=== PATIENT | male | born 1935 | race Caucasian/White ===

== ENCOUNTER 2023-12-17 13:27 | Emergency (ER) | payer OTHER, SELFPAY ==
[2023-12-17 13:42] VITALS: BP 123/86
--- NOTE | 2023-12-17 15:38 | ED.GENMED ---
History of Present Illness
General
Chief Complaint: Musculo-Skeletal Complaint
Time Seen by Provider: 12/17/23 15:05
Travel History
Have you had any contact with someone who has COVID-19?: No
Do you have any symptoms of coronavirus? Fever > 100 degrees, chills, cough, shortness of breath, sore throat, loss of taste or smell, muscle aches, or headache?: No
History of Present Illness
History of Present Illness:
88-year-old male with history of hypertension presents the emergency department for evaluation of a fall that occurred late last evening. He is uncertain of the details but states 'I think I hit my head'. He is currently complaining primarily of
right hip and right thigh pain. He is able to walk. He does report lightheadedness and right shoulder pain as well. Denies any chest pain or shortness of breath. Does not take any aspirin or anticoagulants. Denies neck pain, low back pain, or
extremity paresthesias
Past History
Past History
ED Past Medical History: HTN and Psychiatric (Depression)
ED Past Surgical History: Cholecystectomy and Orthopedic (Left hip replacement)
Social History
Tobacco: Non-smoker
Alcohol: None
Drug: None
Personal:
Living: assisted living
Review of Systems
Review of Systems
Allergies reviewed?: Yes
All Other Systems: ROS reviewed and negative except as documented in HPI and ROS
Phy Exam
Physical Exam
Physical Exam:
GEN: Well appearing, NAD, WDWN
Eyes: PERRLA, EOMs intact, no scleral icterus
HENT: NCAT, oral mucosa moist
Lungs: CTAB, no wheezes, rales, rhonchi, normal chest wall excursion
Cardiac: RRR, no M/R/G, no peripheral edema. Radial pulses 2+ bilat
Abdomen: S, NT, ND, NABS, no masses or hepatosplenomegaly
Neuro: AO x 3, no focal deficits to BUE/BLE, normal sensation throughout
MSK: No gross deformity or ecchymosis. Right shoulder range of motion normal in all naqvi, no bony tenderness however with resisted abduction the patient reports pain to the AC joint. There is no midline cervical, thoracic, or lumbar spine
tenderness. No obvious deformities to the right leg, there is mild ecchymosis to the right medial distal quadriceps. Right hip and right knee range of motion is intact without crepitus however patient reports pain in the right proximal thigh
throughout
Skin: No rashes, petechiae. Normal color, no pallor or jaundice.
Psych: Calm, cooperative, proper hygiene
Course
Orders/Labs/Results
Orders:
Orders
12/17/23 15:37
CT Head W/o Iv Contrast Urgent
Comment:
Reason For Exam: fall, lightheaded
CR Hip - RT w/wo Pel 2-3 Vw* Urgent
Comment:
Reason For Exam: fall
Include a pelvis x-ray?: Yes
CR Knee- Right 4 Or More View* Urgent
Comment:
Reason For Exam: fall
CR Shoulder, Trauma - Right Urgent
Reason For Exam: fall
Vital Signs
Initial and Last Documented VS:
Initial Vital Signs
Temp Pulse Resp BP Pulse Ox
98.7 F 86 18 123/86 96
12/17/23 13:42 12/17/23 13:42 12/17/23 13:42 12/17/23 13:42 12/17/23 13:42
Last Documented Vital Signs
Temp Pulse Resp BP Pulse Ox
98.7 F 86 18 123/86 96
12/17/23 13:42 12/17/23 13:42 12/17/23 13:42 12/17/23 13:42 12/17/23 13:42
MDM/Problems Addressed
MDM/Problems Addressed:
88-year-old male presents with multiple injuries after a minor fall last night. Due to his advanced age and reports of head strike a CT of the head was obtained which was negative. Right shoulder, right knee, and right hip x-rays all independently
interpreted by me were negative for acute osseous abnormalities. Patient is able to ambulate. Discussed supportive care medications at home
*Critical Care Note
Total Time (30-74mins, 75-104mins- exclusive of procedures): Not Applicable
ED Attending Note
-
Portions of this chart may have been created with voice recognition software.� Occasional wrong word or��sound alike� substitutions may have occurred due to the inherent limitations of voice recognition software.
Discharge Plan
Departure
Patient Disposition: Home (Routine Discharge)
Date of Disposition: 12/17/23
Time of Disposition: 16:51
Patient with high blood pressure during this ER visit?: No
Discharge Problem:
Fall, Contusion of knee, right
Instructions: Knee Sprain (DC)
Prescriptions:
No Action
aspirin 81 MG tablet,delayed release (DR/EC)
81 mg PO DAILY
meloxicam 7.5 MG tablet
7.5 mg PO DAILYPRN PRN (Reason: pain)
doxazosin 4 MG tablet
4 mg PO HS
sertraline 50 MG tablet
50 mg PO DAILY
cholecalciferol (vitamin D3) 1,000 UNITS tablet
1,000 units PO DAILY
melatonin 5 MG tablet
5 mg PO HSPRN PRN (Reason: sleep)
multivitamin with folic acid [Tab-A-Antonio] 1 TABLET tablet
1 tab PO DAILY
furosemide 20 MG tablet
20 mg PO DAILYPRN PRN (Reason: weight > 150 lb ) Qty: 30 0RF
prednisone 10 MG tablet
10 mg PO .TAPER Qty: 160 0RF
Rx Instructions:
Take 50mg daily [id number], 40mg daily [id number],
30mg daily [id number], 20mg daily
ondansetron 4 MG tablet,disintegrating
4 mg PO TIDPRN PRN (Reason: nausea) Qty: 12 0RF
prednisone 10 MG tablet
10 mg PO DAILY Qty: 30 0RF
Rx Instructions:
Day 1 & 2: 50 mg, day 3 & 4: 40 mg, days 5 & 6: 30 mg, days 7&8: 20 mg and days 9&10: 10 mg
Referrals:
Sina Garvin MD [Family Provider] -
Interventions
Interventions:
*Risk Screen - Suicide Last Done: 12/17/23 13:44
*General Assessment Last Done: 12/17/23 13:44
*Neglect/Abuse Screening Last Done: 12/17/23 13:44
*ED COVID-19 Vaccine History Last Done: 12/17/23 13:45
*Nursing Disposition Last Done: 12/17/23 17:18
ED-Musculoskeletal Assessment Last Done: 12/17/23 16:05
ED- Neurological Assessment Last Done: 12/17/23 16:05
ED-Skin Assessment Last Done: 12/17/23 16:05
Discharge Date and Time
Discharge Date/Time: 12/17/23 17:19
== END 2023-12-17 17:19 | disposition home or self-care (01) ==
LOC: EMR 13:27
PROVIDERS: EMERGENCY PHYSICIAN Emergency Medicine; FAMILY PHYSICIAN Internal Medicine
DX: S80.01XA Contusion of right knee, initial encounter (principal); W19.XXXA Unspecified fall, initial encounter
CPT/HCPCS: 99284; 70450; 73030; 73502; 73564

== ENCOUNTER 2024-04-03 15:36 | Emergency (ER) | payer OTHER, SELFPAY ==
[2024-04-03 15:42] VITALS: BP 132/82
--- NOTE | 2024-04-03 16:23 | ED.GENMED ---
History of Present Illness
General
Chief Complaint: Eye Problems
Source: patient
Exam Limitations: none
Time Seen by Provider: 04/03/24 16:15
History of Present Illness
History of Present Illness:
88-year-old male not anticoagulated presents complaining of red blood appearing on the white part of his right eye starting this morning. He denies pain. No headache. No vision change. He thinks he may have rubbed his eye yesterday. He is not
sure if the bleeding got worse. No outward bleeding from his eye. No other complaints at this time
Past History
Past History
ED Past Medical History: HTN and Psychiatric (Depression)
ED Past Surgical History: Cholecystectomy and Orthopedic (Left hip replacement)
Social History
Tobacco: Non-smoker
Alcohol: None
Drug: None
Personal:
Living: assisted living
Phy Exam
Physical Exam
Physical Exam:
General: Well-appearing male no acute respiratory distress
HEENT: Normocephalic atraumatic right eye examined. There is a subconjunctival hemorrhage noted seems to be centered medially but spreads inferiorly under the iris and laterally. There is no hyphema. The pupil is round and reactive. Extraocular
motions are intact. Surrounding skin is without erythema lids were everted no visible foreign bodies
Neurologic: Alert good motion to the extremities conversing appropriately
Course
Vital Signs
Initial and Last Documented VS:
Initial Vital Signs
Temp Pulse Resp BP Pulse Ox
98.2 F 71 18 132/82 97
04/03/24 15:42 04/03/24 15:42 04/03/24 15:42 04/03/24 15:42 04/03/24 15:42
Last Documented Vital Signs
Temp Pulse Resp BP Pulse Ox
98.2 F 71 18 132/82 97
04/03/24 15:42 04/03/24 15:42 04/03/24 15:42 04/03/24 15:42 04/03/24 15:42
MDM/Problems Addressed
Differential Diagnosis Includes:
Patient with subconjunctival hemorrhage. No signs of foreign body or abrasion visual acuity checked. Neurologically intact no sign of CVA. At this point no indication for any further intervention
*Critical Care Note
Total Time (30-74mins, 75-104mins- exclusive of procedures): Not Applicable
Update Note
Update Note:
Visual acuity 20/20 left right and both. Reassured patient. Recommended artificial tears and cool compresses. Stable for discharge
Patient has no pain to suggest glaucoma. Vision is normal. No neurologic deficit.
ED Attending Note
-
Portions of this chart may have been created with voice recognition software.� Occasional wrong word or��sound alike� substitutions may have occurred due to the inherent limitations of voice recognition software.
Discharge Plan
Departure
Patient Disposition: Home (Routine Discharge)
Date of Disposition: 04/03/24
Time of Disposition: 16:39
Patient with high blood pressure during this ER visit?: No
Discharge Problem:
KAYLA (subconjunctival hemorrhage)
Instructions: Subconjunctival Hemorrhage
Prescriptions:
No Action
aspirin 81 MG tablet,delayed release (DR/EC)
81 mg PO DAILY
meloxicam 7.5 MG tablet
7.5 mg PO DAILYPRN PRN (Reason: pain)
doxazosin 4 MG tablet
4 mg PO HS
sertraline 50 MG tablet
50 mg PO DAILY
cholecalciferol (vitamin D3) 1,000 UNITS tablet
1,000 units PO DAILY
melatonin 5 MG tablet
5 mg PO HSPRN PRN (Reason: sleep)
multivitamin with folic acid [Tab-A-Antonio] 1 TABLET tablet
1 tab PO DAILY
furosemide 20 MG tablet
20 mg PO DAILYPRN PRN (Reason: weight > 150 lb ) Qty: 30 0RF
prednisone 10 MG tablet
10 mg PO .TAPER Qty: 160 0RF
Rx Instructions:
Take 50mg daily [id number], 40mg daily [id number],
30mg daily [id number], 20mg daily
ondansetron 4 MG tablet,disintegrating
4 mg PO TIDPRN PRN (Reason: nausea) Qty: 12 0RF
prednisone 10 MG tablet
10 mg PO DAILY Qty: 30 0RF
Rx Instructions:
Day 1 & 2: 50 mg, day 3 & 4: 40 mg, days 5 & 6: 30 mg, days 7&8: 20 mg and days 9&10: 10 mg
Referrals:
Sina Garvin MD [Family Provider] -
Activity Restrictions/Additional Instructions:
Use artificial tears as needed. You may apply cool compresses. Return if worse otherwise follow-up with your eye doctor
Interventions
Interventions:
*Risk Screen - Suicide Last Done: 04/03/24 16:27
*General Assessment Last Done: 04/03/24 16:26
*Neglect/Abuse Screening Last Done: 04/03/24 16:27
ED- Fall Risk Assessment Last Done: 04/03/24 16:28
*ED COVID-19 Vaccine History Last Done: 04/03/24 16:19
Discharge Date and Time
Print Language: FRISIAN
[2024-04-03 16:25] VITALS: BMI 31.0
== END 2024-04-03 16:48 | disposition home or self-care (01) ==
LOC: EMR 15:36
PROVIDERS: EMERGENCY PHYSICIAN Emergency Medicine; FAMILY PHYSICIAN Internal Medicine
DX: H11.31 Conjunctival hemorrhage, right eye (principal); I10 Essential (primary) hypertension; F32.A Depression, unspecified; Z96.642 Presence of left artificial hip joint; Z79.82 Long term (current) use of aspirin; Z90.49 Acquired absence of other specified parts of digestive tract
CPT/HCPCS: 99282

== ENCOUNTER → 2024-04-25 10:17 | Outpatient (REF) | payer OTHER, SELFPAY ==
[2024-04-25 12:40] LABS: ALT (SGPT) 17 U/L (0-50); AST (SGOT) 26 U/L (17-59); Albumin 3.5 g/dl (3.5-5.0); Alkaline Phosphatase 55 U/L (38-126); Blood Urea Nitrogen 25 mg/dl (9-20); Calcium 9.4 mg/dl (8.4-10.2); Carbon Dioxide 24 mmol/L (22-30); Chloride 105 mmol/L (98-107); Glucose 119 mg/dl (70-99); Magnesium 2.1 mg/dl (1.6-2.3); Potassium 4.1 mmol/L (3.5-5.1); Sodium 139 mmol/L (135-145); Total Bilirubin 0.7 mg/dl (0.2-1.3); Total Protein 6.2 g/dl (6.3-8.2); eGFR > 60.00
[2024-04-25 13:08] LABS: Hematocrit 36.8 % (39.0-52.0); Hemoglobin 12.4 g/dL (13.0-18.0); Mean Corp Hgb Conc. 33.7 g/dL (33.0-37.0); Mean Corpuscular Hgb 28.4 pg (27.0-31.0); Mean Corpuscular Volume 84.2 fL (80.0-94.0); Mean Platelet Volume 9.8 fL (7.4-10.4); Platelet Count 330 10^3/uL (130-400); Red Blood Cell Count 4.37 10^6/uL (4.70-6.10); Red Cell Dist. Width 13.1 % (11.5-14.5); White Blood Cell Count 9.5 10^3/uL (4.8-10.8)
== END ==
LOC: OLABWHC 10:17
PROVIDERS: ATTENDING PHYSICIAN Internal Medicine
DX: I50.32 Chronic diastolic (congestive) heart failure (principal); J84.10 Pulmonary fibrosis, unspecified; M16.11 Unilateral primary osteoarthritis, right hip; M19.90 Unspecified osteoarthritis, unspecified site
CPT/HCPCS: 80053; 83735; 85027

== ENCOUNTER 2024-05-19 13:50 | Emergency (ER) | payer OTHER, SELFPAY ==
[2024-05-19 13:54] VITALS: BP 119/71
--- NOTE | 2024-05-19 14:49 | ED.GENMED ---
History of Present Illness
General
Chief Complaint: Fall
Source: patient
Exam Limitations: none
Time Seen by Provider: 05/19/24 14:39
History of Present Illness
History of Present Illness:
See MDM
Past History
Past History
ED Past Medical History: HTN and Psychiatric (Depression)
ED Past Surgical History: Cholecystectomy and Orthopedic (Left hip replacement)
Social History
Tobacco: Non-smoker
Alcohol: None
Drug: None
Personal:
Living: assisted living
Phy Exam
Physical Exam
Physical Exam:
See MDM
Course
Orders/Labs/Results
Orders:
Orders
05/19/24 14:34
CBC/With Diff [Complete Blood Count/With Diff] Urgent
Comprehensive Metabolic Panel Urgent
05/19/24 15:51
Urinalysis Reflex To Culture Urgent
Date Specimen was Collected: 05/19/24
Time Specimen was Collected: 15:47
Urine Microscopic Reflex Cult Urgent
Abnormal Lab Results
05/19/24 05/19/24
14:34 15:51
RBC 4.67 L 10^6/uL
(4.70-6.10)
Hct 38.0 L %
(39.0-52.0)
Absolute Lymphs (auto) 1.0 L 10^3/uL
(1.2-3.4)
Absolute Monos (auto) 0.9 H 10^3/uL
(0.1-0.6)
Lymphocytes % 12.6 L %
(20.5-51.1)
Monocytes % 10.8 H %
(1.7-9.3)
BUN 22 H mg/dl
(9-20)
Glucose 109 H mg/dl
(70-99)
Leukocyte Esterase Rfl Trace A
(Negative)
05/19/24 14:34
05/19/24 14:34
Vital Signs
Initial and Last Documented VS:
Initial Vital Signs
Temp Pulse Resp BP Pulse Ox
97.7 F 85 16 119/71 98
05/19/24 13:54 05/19/24 13:54 05/19/24 13:54 05/19/24 13:54 05/19/24 13:54
Last Documented Vital Signs
Temp Pulse Resp BP Pulse Ox
97.7 F 85 16 119/71 98
05/19/24 13:54 05/19/24 13:54 05/19/24 13:54 05/19/24 13:54 05/19/24 13:54
MDM/Problems Addressed
Differential Diagnosis Includes:
HPI and MDM Narrative:
88-year-old male presenting for evaluation after a fall. Patient states his legs gave out this morning. However, daughter at bedside believes that he tripped over the dog pee pad. Patient landed on both of his knees. He denies head trauma. He
had a recent right hip replacement and is currently on antibiotics for infection of the incision site. On exam, he is well-appearing and nontoxic. He has mildly dry mucous membranes. I provided water to the patient. Will obtain basic blood work.
His small abrasions to both knees but has no bony tenderness. There is no pain with hip palpation or logrolling of the hip. The incision was undressed and there is mild discharge noted at the site. It currently being cared for by wound care, per
daughter
Physical exam
General: Well appearing and non-toxic
HEENT: protecting airway
Neck: appears supple
CV: No evidence of cyanosis
Resp: No accessory muscle use
Abd: Non-distended
Extremities: Right hip incision with mild discharge. Bilateral abrasions to both knees without bony tenderness. No pain with palpation of right hip or pelvis
Neuro: alert
Psych: Normal affect
Skin: Mild discharge to right hip incision
Problems Addressed including Acute and Chronic Conditions affecting care:
1. Fall
Acuity: acute
Prognosis: stable
Details: Per daughter, likely mechanical fall. Will obtain basic blood work and urinalysis. No evidence of significant trauma to suggest fracture or dislocation
Updates
Blood work without clinical significance. Urine negative. Patient ambulated without difficulty and feels comfortable going home
Differential Diagnosis (but not limited to): Abrasion, mechanical fall, UTI
Testing considered: Hip and knee x-ray
Drug therapy (if applicable): OTC meds, please see d/c instruction regarding Rx drugs
Amount and/or Complexity of Data Reviewed
Clinical info obtained from: Patient
External data reviewed: N/A
Labs I independently reviewed (but not limited to): White blood cell count normal
Radiology: N/A
Pulse Ox: not hypoxic
EKG independently reviewed: N/A
Telephone Installer: N/A
Critical Care: N/A
Risk of Complication:
Social Determinants of health: Good social support
Discussed with other providers: N/A
Escalation of Care includes Admit/Obs: After being observed in the Emergency Department, pt stable for discharge.
Occasional wrong word or 'sound a like' substitutions may have occurred due to the inherent limitations of voice recognition software. Read the chart carefully and recognize, using context, where substitutions have occurred.
*Critical Care Note
Total Time (30-74mins, 75-104mins- exclusive of procedures): Not Applicable
ED Attending Note
-
Portions of this chart may have been created with voice recognition software.� Occasional wrong word or��sound alike� substitutions may have occurred due to the inherent limitations of voice recognition software.
Discharge Plan
Departure
Patient Disposition: Home (Routine Discharge)
Date of Disposition: 05/19/24
Time of Disposition: 18:18
Patient with high blood pressure during this ER visit?: No
Discharge Problem:
Fall
Prescriptions:
No Action
aspirin 81 MG tablet,delayed release (DR/EC)
81 mg PO DAILY
meloxicam 7.5 MG tablet
7.5 mg PO DAILYPRN PRN (Reason: pain)
doxazosin 4 MG tablet
4 mg PO HS
sertraline 50 MG tablet
50 mg PO DAILY
cholecalciferol (vitamin D3) 1,000 UNITS tablet
1,000 units PO DAILY
melatonin 5 MG tablet
5 mg PO HSPRN PRN (Reason: sleep)
multivitamin with folic acid [Tab-A-Antonio] 1 TABLET tablet
1 tab PO DAILY
furosemide 20 MG tablet
20 mg PO DAILYPRN PRN (Reason: weight > 150 lb ) Qty: 30 0RF
prednisone 10 MG tablet
10 mg PO .TAPER Qty: 160 0RF
Rx Instructions:
Take 50mg daily [id number], 40mg daily [id number],
30mg daily [id number], 20mg daily
ondansetron 4 MG tablet,disintegrating
4 mg PO TIDPRN PRN (Reason: nausea) Qty: 12 0RF
prednisone 10 MG tablet
10 mg PO DAILY Qty: 30 0RF
Rx Instructions:
Day 1 & 2: 50 mg, day 3 & 4: 40 mg, days 5 & 6: 30 mg, days 7&8: 20 mg and days 9&10: 10 mg
Referrals:
Sina Garvin MD [Family Provider] -
Activity Restrictions/Additional Instructions:
Please return for any worsening symptoms.
You may return at any time if you have further concerns.
Please follow up with your doctor at the first available appointment, preferably this week.
Thank you for choosing [facility].
Interventions
Interventions:
*Risk Screen - Suicide Last Done: 05/19/24 13:54
*General Assessment Last Done: 05/19/24 13:54
*Neglect/Abuse Screening Last Done: 05/19/24 13:54
ED-Musculoskeletal Assessment Last Done: 05/19/24 16:40
ED- Neurological Assessment Last Done: 05/19/24 16:40
ED-Skin Assessment Last Done: 05/19/24 16:40
Discharge Date and Time
Print Language: YI
[2024-05-19 14:51] LABS: % Basophils 0.5 % (0-2); % Immature Granulocytes 0.4 % (0-0.5); % Lymphocytes 12.6 % (20.5-51.1); % Monocytes 10.8 % (1.7-9.3); % Neutrophils 72.7 % (42.2-75.2); Absolute Eosinophils 0.2 10^3/uL (0-0.7); Absolute Monocytes 0.9 10^3/uL (0.1-0.6); Absolute Neutrophils 5.8 10^3/uL (1.4-6.5); Hemoglobin 13.1 g/dL (13.0-18.0); Mean Corp Hgb Conc. 34.5 g/dL (33.0-37.0); Mean Corpuscular Hgb 28.1 pg (27.0-31.0); Mean Corpuscular Volume 81.4 fL (80.0-94.0); Mean Platelet Volume 9.4 fL (7.4-10.4); Nucleated Red Blood Cells % 0 % (-); Platelet Count 215 10^3/uL (130-400); Red Blood Cell Count 4.67 10^6/uL (4.70-6.10); Red Cell Dist. Width 13.4 % (11.5-14.5)
[2024-05-19 15:16] LABS: ALT (SGPT) 12 U/L (0-50); AST (SGOT) 18 U/L (17-59); Albumin 4.3 g/dl (3.5-5.0); Alkaline Phosphatase 72 U/L (38-126); Blood Urea Nitrogen 22 mg/dl (9-20); Calcium 9.8 mg/dl (8.4-10.2); Carbon Dioxide 26 mmol/L (22-30); Chloride 104 mmol/L (98-107); Glucose 109 mg/dl (70-99); Sodium 138 mmol/L (135-145); Total Bilirubin 0.7 mg/dl (0.2-1.3); Total Protein 7.1 g/dl (6.3-8.2); eGFR > 60.00
[2024-05-19 16:03] LABS: Urine Albumin Negative (Neg - Trace); Urine Bilirubin Negative (Negative); Urine Character Clear (Clear); Urine Color Yellow; Urine Glucose Negative (Negative); Urine Ketone Negative (Negative); Urine Leukocyte Trace (Negative); Urine Nitrite Negative (Negative); Urine Occult Blood Negative (Negative); Urine Urobilinogen Negative (Neg - 1+)
[2024-05-19 16:13] LABS: Urine Red Blood Cell 0-2 /HPF (0-2); Urine White Cell 0-2 /HPF (0-5)
== END 2024-05-19 18:55 | disposition home or self-care (01) ==
LOC: EMR 13:50
PROVIDERS: EMERGENCY PHYSICIAN Student in an Organized Health Care Education/Training Program; FAMILY PHYSICIAN Internal Medicine
DX: S80.212A Abrasion, left knee, initial encounter (principal); S80.211A Abrasion, right knee, initial encounter; W01.0XXA Fall on same level from slipping, tripping and stumbling without subsequent striking against object, initial encounter; I10 Essential (primary) hypertension; F32.A Depression, unspecified; Z90.49 Acquired absence of other specified parts of digestive tract; Z96.642 Presence of left artificial hip joint
CPT/HCPCS: 99283; 80053; 81003; 81015; 85025

== ENCOUNTER 2024-06-08 17:48 | Emergency (ER) | payer OTHER, SELFPAY ==
[2024-06-08] VITALS (7 sets, daily range): BP systolic 104–128; BP diastolic 65–81; BMI 28.8
[2024-06-08] MEDS: NSS 1000 IV (18:04)
[2024-06-08] MEDS: TYLENOL 1000 MG PO (18:06)
[2024-06-08 18:53] LABS: Hematocrit 39.3 % (39.0-52.0); Hemoglobin 13.6 g/dL (13.0-18.0); Mean Corp Hgb Conc. 34.6 g/dL (33.0-37.0); Mean Corpuscular Hgb 27.5 pg (27.0-31.0); Mean Corpuscular Volume 79.6 fL (80.0-94.0); Mean Platelet Volume 9.7 fL (7.4-10.4); Platelet Count 229 10^3/uL (130-400); Red Blood Cell Count 4.94 10^6/uL (4.70-6.10); Red Cell Dist. Width 13.9 % (11.5-14.5); White Blood Cell Count 25.7 10^3/uL (4.8-10.8)
[2024-06-08 18:58] LABS: Lactic Acid 2.1 mmol/L (0.7-2.0)
[2024-06-08 18:59] LABS: % Basophils 0.3 % (0-2); % Eosinophils 0.1 % (0-6); % Immature Granulocytes 1.3 % (0-0.5); % Lymphocytes 3.3 % (20.5-51.1); % Monocytes 7.4 % (1.7-9.3); % Neutrophils 87.6 % (42.2-75.2); Absolute Basophils 0.1 10^3/uL (0-0.2); Absolute Immature Granulocytes 0.3 10^3/uL (0-0.05); Absolute Lymphocytes 0.9 10^3/uL (1.2-3.4); Absolute Monocytes 1.9 10^3/uL (0.1-0.6); Absolute Neutrophils 22.5 10^3/uL (1.4-6.5); Nucleated Red Blood Cells % 0 % (-)
[2024-06-08 19:15] LABS: ALT (SGPT) 16 U/L (0-50); AST (SGOT) 31 U/L (17-59); Albumin 4.2 g/dl (3.5-5.0); Alkaline Phosphatase 67 U/L (38-126); Blood Urea Nitrogen 22 mg/dl (9-20); Calcium 9.3 mg/dl (8.4-10.2); Carbon Dioxide 20 mmol/L (22-30); Chloride 104 mmol/L (98-107); Estimated Creatinine Clearance 49 ml/min; Glucose 115 mg/dl (70-99); Potassium 3.7 mmol/L (3.5-5.1); Sodium 141 mmol/L (135-145); Total Protein 7.3 g/dl (6.3-8.2); eGFR > 60.00
[2024-06-08] MEDS: NSS 500 IV (19:40)
[2024-06-08 20:44] LABS: Urine Albumin Negative (Neg - Trace); Urine Bilirubin Negative (Negative); Urine Character Clear (Clear); Urine Color Yellow; Urine Glucose Negative (Negative); Urine Ketone 1+ (Negative); Urine Leukocyte 1+ (Negative); Urine Nitrite Negative (Negative); Urine Occult Blood 2+ (Negative); Urine Specific Gravity 1.005 (<1.030); Urine Urobilinogen 1+ (Neg - 1+)
[2024-06-08 20:57] LABS: COVID-19 Antigen Negative (Negative)
[2024-06-08 20:57] LABS: Urine Red Blood Cell 0-2 /HPF (0-2)
--- NOTE | 2024-06-08 21:03 | ED.GENMED ---
History of Present Illness
General
Chief Complaint: Change in Mental Status
Source: patient and family
Exam Limitations: none
Time Seen by Provider: 06/08/24 18:43
Nursing documentation reviewed up to this point in time: agreed with
History of Present Illness
History of Present Illness:
88-year-old male with a past medical history of hypertension who presents to the emergency department with his daughter for evaluation of weakness, fever, also had a mechanical fall today. Patient reports that he has been feeling increasingly weak
over the past few days. He had a minor ground-level fall onto his bottom few days ago, no serious injuries at that time. Today he had another ground-level fall and daughter found him on the floor this afternoon with apparent minor head trauma. He
has been mildly confused since she found him, was found to have a high fever. Brought in by EMS. He denies any headache or neck pain. Denies any chest or abdominal pain. Daughter has noted some increased frequency of urination but patient denies
any dysuria. He has not had any nausea or vomiting, or diarrhea. His only recent complaint has been some pain in the right hip and some increasing redness and drainage from his right hip where he had a hip replacement in March (with Dr. Kruse at
[place]).
Past History
Past History
ED Past Medical History: HTN and Psychiatric (Depression)
ED Past Surgical History: Cholecystectomy and Orthopedic (Left hip replacement)
Social History
Tobacco: Non-smoker
Alcohol: None
Drug: None
Personal:
Living: assisted living
Review of Systems
Review of Systems
All Other Systems: ROS reviewed and negative except as documented in HPI and ROS
Constitutional: Reports fever, fatigue and chills
EENT: Denies sore throat or runny nose
Respiratory: Denies cough or trouble breathing
Cardiac: Denies chest pain
ABD/GI: Denies abdominal pain, nausea or vomiting
: Reports frequency; Denies dysuria or flank pain
Musculoskeletal: Reports joint pain; Denies neck pain or back pain
Neurological: Denies headache
Phy Exam
Physical Exam
Physical Exam:
General: Slightly lethargic but arousable, febrile to 102 �F
Head: Normocephalic, tiny white abrasion
Eyes: Conjunctiva normal, pupils equal round reactive to light bilaterally
Throat: Airway intact, handling secretions
Neck: Trachea midline, no cervical spine tenderness
Lungs: Clear to auscultation bilaterally, no wheezing, rales, rhonchi
Heart: Tachycardia with regular rhythm, no murmurs, gallops, or rubs
Abd: Soft, non distended, nontender
Back: No signs of trauma the back flank, no tenderness in thoracic or lumbar spine
Neuro: Lethargic but arousable, no gross deficits
Skin: Erythema and warmth, wound on the right lateral hip as below
Extremities: Patient has erythema, induration and tenderness along the lateral right hip near prior surgical incision; he has a small approximately 1 cm diameter incisional wound with purulent drainage; extremities otherwise are atraumatic and he
allows for passive range of motion without significant pain
Scores
Heart Failure Risk
Heart Failure Risk Score: Not Applicable
Heart Score for Chest Pain Patients
STEMI patient?: Not applicable
Withdrawal Assessment of Alcohol
Withdrawal Assessment Completed?: Not applicable
Course
Orders/Labs/Results
Orders:
Orders
06/08/24 18:02
EKG [Electrocardiogram (*1)] Urgent
Reason for Study: Tachycardia
06/08/24 18:03
EKG- Treatment ONCE
Complete Blood Count/With Diff Urgent
Comprehensive Metabolic Panel Urgent
Lactic Acid Urgent
Blood Culture Urgent
LOREN Source: Blood/Venous
Specimen Description:
0.9% Sodium Chloride 1000 ml [Nss] 1,000 ml IV BOLUS
Acetaminophen [Tylenol] 1,000 mg .ROUTE .[facility]
06/08/24 18:06
Acetaminophen [Tylenol] 1,000 mg PO NOW STA
06/08/24 19:16
CT Cervical Spine W/o Iv Contr Urgent
Comment:
Reason For Exam: fall with head strike, confused
CT Head W/o Iv Contrast Urgent
Comment:
Reason For Exam: fall with head strike, confused
CT Pelvis With Iv Contrast Urgent
Comment:
Reason For Exam: left hip redness, swelling, wound s/p joint replac
CR Chest - 2 Views Urgent
Comment:
Reason For Exam: fever
06/08/24 19:17
0.9% Sodium Chloride 500 ml [Nss] 500 ml IV BOLUS
06/08/24 20:26
COVID-19 Antigen Urgent
Source: Nasal Swab
06/08/24 20:35
Urinalysis Reflex To Culture Urgent
Date Specimen was Collected: 06/08/24
Time Specimen was Collected: 20:34
Urine Microscopic Reflex Cult Urgent
Urine Culture Urgent
LOREN Source: U
Specimen Description:
Date Specimen was Collected: 06/08/24
Time Specimen was Collected: 20:34
06/08/24 20:58
Piperacillin/Tazo 3.375 Gram [Zosyn] 3.375 gram in 50 ml IV NOW
Vancomycin [Vancocin] 1,500 mg 0.9% Sodium Chloride [Nss] 20 ml 0.9% Sodium Chloride 250 ml [Nss] 250 ml IV NOW
Abnormal Lab Results
06/08/24 06/08/24
18:03 20:35
WBC 25.7 H 10^3/uL
(4.8-10.8)
MCV 79.6 L fL
(80.0-94.0)
Abs Immat Gran (auto) 0.3 H 10^3/uL
(0-0.05)
Absolute Neuts (auto) 22.5 H 10^3/uL
(1.4-6.5)
Absolute Lymphs (auto) 0.9 L 10^3/uL
(1.2-3.4)
Absolute Monos (auto) 1.9 H 10^3/uL
(0.1-0.6)
Immature Gran % 1.3 H %
(0-0.5)
Neutrophils % 87.6 H %
(42.2-75.2)
Lymphocytes % 3.3 L %
(20.5-51.1)
Carbon Dioxide 20 L mmol/L
(22-30)
BUN 22 H mg/dl
(9-20)
Glucose 115 H mg/dl
(70-99)
Lactic Acid 2.1 H mmol/L
(0.7-2.0)
Total Bilirubin 2.0 H mg/dl
(0.2-1.3)
Urine Ketones 1+ A
(Negative)
Ur Occult Blood Reflex 2+ A
(Negative)
Leukocyte Esterase Rfl 1+ A
(Negative)
06/08/24 18:03
06/08/24 18:03
Vital Signs
Initial and Last Documented VS:
Initial Vital Signs
Pulse Resp
126 16
06/08/24 17:56 06/08/24 17:56
Last Documented Vital Signs
Temp Pulse Resp BP Pulse Ox
39.2 C H 109 21 120/68 93
06/08/24 18:07 06/08/24 20:31 06/08/24 20:31 06/08/24 20:31 06/08/24 20:31
MDM/Problems Addressed
Differential Diagnosis Includes:
Sepsis�source includes UTI, pneumonia, wound infection, virus
MDM/Problems Addressed:
88-year-old male presents to the emergency room for evaluation of weakness and fever, confusion�had 2 falls in the past few days most notably today where he was found facedown on the ground. Aside from fever only other complaint has been fatigue
and redness, drainage from the near surgical incision on his right hip. He arrives to us febrile and tachycardic; normotensive, normal respiratory rate, normal work of breathing normal pulse ox. Physical exam as above. Place large-bore IV send
labs including a CBC and a CMP, lactate, blood cultures. Will check for COVID. Send urinalysis. Obtain a chest x-ray. Given the fall will check CT head and cervical spine. Will check a CT of the pelvis with rule out fracture with his fall but
also to evaluate for abscess in the right hip. Check an EKG. Provide fluids and antipyretic. Reassess after the above.
Initial labs reviewed: CBC shows leukocytosis to 25.7, CMP no clinically significant abnormalities. Lactate marginally elevated at 2.1. Fluids in progress. Urinalysis negative for infection. Chest x-ray reviewed independently by me shows no
pneumonia. COVID swab is negative. CT head and cervical spine negative for any acute pathology. CT of the pelvis shows abscess right hip with surrounding cellulitis. Will cover with antibiotics�vancomycin and Zosyn. Given proximity to recent hip
replacement Case was discussed with orthopedic surgeon at [facility]�recommended ER to ER transfer and they will evaluate there. Case discussed with ER physician, accepted for transfer. Will monitor pending transport. Fortunately on
clinical reassessment after defervescence patient's mental status greatly improved he is now awake and alert.
*Radiology
Radiology exam reviewed: preliminary read by ED provider and radiology read reviewed
*Pulse Oximetry
Patient hypoxic: no
*EKG
Interpreted by ED Provider?: Yes
Heart Rate: 118
Rate: tachycardiac
Rhythm: sinus
[place]: left axis deviation
Interval: normal interval
QRS Pattern: normal QRS
Ischemia: no ischemia
*Critical Care Note
Total Time (30-74mins, 75-104mins- exclusive of procedures): 31
comment:
Critical care statement: A total of 31 minutes of critical care time was provided for this patient. This includes management of unstable vital signs, evaluation of the patient at bedside, frequent reassessment, discussion with
consultants/hospitalist, and review of pertinent medical records. This time was separate from time utilized to perform any aforementioned documented procedures
Data Reviewed
Review of Other/Old Records Reveals: Labs and Records
Source: patient, family and ambulance crew
Patient Management
Discussion with other providers: [place] Operator (Discussed with orthopedist at [place], discussed with ER physician Vane)
Escalation/DeEscalation of care consider admission/obs:
Admission indicated�transfer to [place] for continuity of care with orthopedic surgeon
ED Attending Note
-
Portions of this chart may have been created with voice recognition software.� Occasional wrong word or��sound alike� substitutions may have occurred due to the inherent limitations of voice recognition software.
Discharge Plan
Departure
Patient Disposition: Acute Care Hospital
Date of Disposition: 06/08/24
Time of Disposition: 21:25
Discharge Problem:
Sepsis, Abscess of hip, right, Cellulitis of right hip
Prescriptions:
No Action
aspirin 81 MG tablet,delayed release (DR/EC)
81 mg PO DAILY
meloxicam 7.5 MG tablet
7.5 mg PO DAILYPRN PRN (Reason: pain)
doxazosin 4 MG tablet
4 mg PO HS
sertraline 50 MG tablet
50 mg PO DAILY
cholecalciferol (vitamin D3) 1,000 UNITS tablet
1,000 units PO DAILY
melatonin 5 MG tablet
5 mg PO HSPRN PRN (Reason: sleep)
multivitamin with folic acid [Tab-A-Antonio] 1 TABLET tablet
1 tab PO DAILY
furosemide 20 MG tablet
20 mg PO DAILYPRN PRN (Reason: weight > 150 lb ) Qty: 30 0RF
prednisone 10 MG tablet
10 mg PO .TAPER Qty: 160 0RF
Rx Instructions:
Take 50mg daily [id number], 40mg daily [id number],
30mg daily [id number], 20mg daily
ondansetron 4 MG tablet,disintegrating
4 mg PO TIDPRN PRN (Reason: nausea) Qty: 12 0RF
prednisone 10 MG tablet
10 mg PO DAILY Qty: 30 0RF
Rx Instructions:
Day 1 & 2: 50 mg, day 3 & 4: 40 mg, days 5 & 6: 30 mg, days 7&8: 20 mg and days 9&10: 10 mg
Referrals:
Sina Garvin MD [Family Provider] -
Hospital Transfer
Other hospital: [place]
I certify that the patient requires transfer: Yes
Discussed case with accepting physician: Dr. Justice
Reason for transfer: specialties available
Interventions
Interventions:
*Risk Screen - Suicide Last Done: 06/08/24 18:00
*General Assessment Last Done: 06/08/24 18:00
*Neglect/Abuse Screening Last Done: 06/08/24 18:00
ED- Fall Risk Assessment Last Done: 06/08/24 18:05
*ED COVID-19 Vaccine History Last Done: 06/08/24 17:59
ED- Neurological Assessment Last Done: 06/08/24 18:08
ED Swallowing Screen Last Done: 06/08/24 18:05
Discharge Date and Time
Print Language: CITIZEN OF [place]
[2024-06-08] MEDS: ZOSYN 50 IV (21:44)
[2024-06-08] MEDS: VANCOCIN 300 MG IV (22:43)
[2024-06-08] MEDS: VANCOCIN 300 ML IV (22:43)
== END 2024-06-08 23:31 | disposition short-term general hospital (02) ==
LOC: EMR 17:48
PROVIDERS: EMERGENCY PHYSICIAN Emergency Medicine; FAMILY PHYSICIAN Internal Medicine
DX: A41.9 Sepsis, unspecified organism (principal); L02.415 Cutaneous abscess of right lower limb; L03.115 Cellulitis of right lower limb
CPT/HCPCS: 99291; 96365; 96367; 96361 ×2; 70450; 71046; 72125; 72193; 80053; 81003; 81015; 83605; 85025; 87040; 87086; 87811; 93005; Q9967

== ENCOUNTER → 2024-06-21 10:52 | Outpatient (REF) | payer OTHER, SELFPAY ==
[2024-06-21 11:26] LABS: % Basophils 1.1 % (0-2); % Lymphocytes 11.6 % (20.5-51.1); % Monocytes 7.7 % (1.7-9.3); % Neutrophils 72.6 % (42.2-75.2); Absolute Basophils 0.1 10^3/uL (0-0.2); Absolute Eosinophils 0.3 10^3/uL (0-0.7); Absolute Immature Granulocytes 0.4 10^3/uL (0-0.05); Absolute Lymphocytes 1.3 10^3/uL (1.2-3.4); Absolute Monocytes 0.9 10^3/uL (0.1-0.6); Hematocrit 28.4 % (39.0-52.0); Hemoglobin 9.3 g/dL (13.0-18.0); Mean Corp Hgb Conc. 32.7 g/dL (33.0-37.0); Mean Corpuscular Hgb 26.3 pg (27.0-31.0); Mean Corpuscular Volume 80.5 fL (80.0-94.0); Mean Platelet Volume 9.9 fL (7.4-10.4); Nucleated Red Blood Cells % 0 % (-); Platelet Count 366 10^3/uL (130-400); Red Blood Cell Count 3.53 10^6/uL (4.70-6.10); Red Cell Dist. Width 14.3 % (11.5-14.5); White Blood Cell Count 11.1 10^3/uL (4.8-10.8)
[2024-06-21 11:30] LABS: ALT (SGPT) 13 U/L (0-50); AST (SGOT) 20 U/L (17-59); Albumin 3.1 g/dl (3.5-5.0); Alkaline Phosphatase 65 U/L (38-126); Blood Urea Nitrogen 22 mg/dl (9-20); Calcium 8.9 mg/dl (8.4-10.2); Carbon Dioxide 23 mmol/L (22-30); Chloride 107 mmol/L (98-107); Glucose 88 mg/dl (70-99); Potassium 4.7 mmol/L (3.5-5.1); Sodium 142 mmol/L (135-145); Total Bilirubin 0.4 mg/dl (0.2-1.3); eGFR > 60.00
== END ==
LOC: OLABWHC 10:52
PROVIDERS: ATTENDING PHYSICIAN Family Medicine
DX: Z47.1 Aftercare following joint replacement surgery (principal); Z96.641 Presence of right artificial hip joint
CPT/HCPCS: 36415; 80053; 85025; 86140

== ENCOUNTER → 2024-06-27 12:16 | Outpatient (REF) | payer OTHER, SELFPAY ==
[2024-06-27 12:51] LABS: % Basophils 1.3 % (0-2); % Eosinophils 5.2 % (0-6); % Immature Granulocytes 0.7 % (0-0.5); % Lymphocytes 16.2 % (20.5-51.1); % Monocytes 9.5 % (1.7-9.3); % Neutrophils 67.1 % (42.2-75.2); Absolute Basophils 0.1 10^3/uL (0-0.2); Absolute Eosinophils 0.3 10^3/uL (0-0.7); Absolute Monocytes 0.6 10^3/uL (0.1-0.6); Hematocrit 26.9 % (39.0-52.0); Hemoglobin 8.9 g/dL (13.0-18.0); Mean Corp Hgb Conc. 33.1 g/dL (33.0-37.0); Mean Corpuscular Volume 78.7 fL (80.0-94.0); Mean Platelet Volume 9.9 fL (7.4-10.4); Nucleated Red Blood Cells % 0 % (-); Platelet Count 278 10^3/uL (130-400); Red Blood Cell Count 3.42 10^6/uL (4.70-6.10); Red Cell Dist. Width 14.2 % (11.5-14.5)
[2024-06-27 13:22] LABS: ALT (SGPT) 17 U/L (0-50); AST (SGOT) 20 U/L (17-59); Albumin 3.2 g/dl (3.5-5.0); Alkaline Phosphatase 66 U/L (38-126); Blood Urea Nitrogen 16 mg/dl (9-20); Calcium 8.8 mg/dl (8.4-10.2); Carbon Dioxide 23 mmol/L (22-30); Chloride 107 mmol/L (98-107); Glucose 94 mg/dl (70-99); Potassium 4.3 mmol/L (3.5-5.1); Sodium 141 mmol/L (135-145); Total Bilirubin 0.4 mg/dl (0.2-1.3); Total Protein 5.9 g/dl (6.3-8.2); eGFR > 60.00
== END ==
LOC: OLABWHC 12:16
PROVIDERS: ATTENDING PHYSICIAN Family Medicine
DX: Z47.1 Aftercare following joint replacement surgery (principal); Z96.641 Presence of right artificial hip joint
CPT/HCPCS: 36415; 80053; 85025; 86140

== ENCOUNTER → 2024-07-04 11:47 | Outpatient (REF) | payer OTHER, SELFPAY ==
[2024-07-04 12:25] LABS: % Basophils 0.6 % (0-2); % Eosinophils 6.9 % (0-6); % Immature Granulocytes 0.5 % (0-0.5); % Lymphocytes 18.6 % (20.5-51.1); % Monocytes 9.5 % (1.7-9.3); % Neutrophils 63.9 % (42.2-75.2); Absolute Eosinophils 0.4 10^3/uL (0-0.7); Absolute Lymphocytes 1.2 10^3/uL (1.2-3.4); Absolute Monocytes 0.6 10^3/uL (0.1-0.6); Hemoglobin 9.5 g/dL (13.0-18.0); Mean Corp Hgb Conc. 32.8 g/dL (33.0-37.0); Mean Corpuscular Volume 79.2 fL (80.0-94.0); Mean Platelet Volume 10.1 fL (7.4-10.4); Nucleated Red Blood Cells % 0 % (-); Platelet Count 209 10^3/uL (130-400); Red Blood Cell Count 3.66 10^6/uL (4.70-6.10); Red Cell Dist. Width 14.3 % (11.5-14.5); White Blood Cell Count 6.2 10^3/uL (4.8-10.8)
[2024-07-04 12:51] LABS: ALT (SGPT) 15 U/L (0-50); AST (SGOT) 18 U/L (17-59); Albumin 3.3 g/dl (3.5-5.0); Alkaline Phosphatase 71 U/L (38-126); Blood Urea Nitrogen 13 mg/dl (9-20); Calcium 8.9 mg/dl (8.4-10.2); Carbon Dioxide 24 mmol/L (22-30); Chloride 106 mmol/L (98-107); Glucose 92 mg/dl (70-99); Potassium 4.3 mmol/L (3.5-5.1); Sodium 141 mmol/L (135-145); Total Bilirubin 0.4 mg/dl (0.2-1.3); Total Protein 6.1 g/dl (6.3-8.2); eGFR > 60.00
== END ==
LOC: OLABWHC 11:47
PROVIDERS: ATTENDING PHYSICIAN Family Medicine
DX: Z47.1 Aftercare following joint replacement surgery (principal); Z96.641 Presence of right artificial hip joint; J18.9 Pneumonia, unspecified organism
CPT/HCPCS: 36415; 80053; 85025; 86140

== ENCOUNTER → 2024-07-11 15:28 | Outpatient (REF) | payer OTHER, SELFPAY ==
[2024-07-11 16:54] LABS: % Basophils 0.6 % (0-2); % Eosinophils 5.2 % (0-6); % Immature Granulocytes 0.4 % (0-0.5); % Monocytes 12.4 % (1.7-9.3); % Neutrophils 63.4 % (42.2-75.2); Absolute Eosinophils 0.3 10^3/uL (0-0.7); Absolute Lymphocytes 0.9 10^3/uL (1.2-3.4); Absolute Monocytes 0.6 10^3/uL (0.1-0.6); Absolute Neutrophils 3.3 10^3/uL (1.4-6.5); Hematocrit 29.9 % (39.0-52.0); Hemoglobin 9.9 g/dL (13.0-18.0); Mean Corp Hgb Conc. 33.1 g/dL (33.0-37.0); Mean Corpuscular Volume 81.7 fL (80.0-94.0); Mean Platelet Volume 10.2 fL (7.4-10.4); Nucleated Red Blood Cells % 0 % (-); Platelet Count 167 10^3/uL (130-400); Red Blood Cell Count 3.66 10^6/uL (4.70-6.10); Red Cell Dist. Width 14.4 % (11.5-14.5); White Blood Cell Count 5.2 10^3/uL (4.8-10.8)
[2024-07-11 17:31] LABS: ALT (SGPT) 12 U/L (0-50); AST (SGOT) 15 U/L (17-59); Albumin 3.2 g/dl (3.5-5.0); Alkaline Phosphatase 57 U/L (38-126); Blood Urea Nitrogen 17 mg/dl (9-20); Calcium 8.7 mg/dl (8.4-10.2); Carbon Dioxide 24 mmol/L (22-30); Chloride 108 mmol/L (98-107); Glucose 91 mg/dl (70-99); Potassium 4.1 mmol/L (3.5-5.1); Sodium 142 mmol/L (135-145); Total Bilirubin 0.3 mg/dl (0.2-1.3); eGFR > 60.00
== END ==
LOC: OLABWHC 15:28
PROVIDERS: ATTENDING PHYSICIAN Family Medicine
DX: Z47.1 Aftercare following joint replacement surgery (principal); Z96.641 Presence of right artificial hip joint
CPT/HCPCS: 36415; 80053; 85025; 86140

== ENCOUNTER → 2024-07-18 11:30 | Outpatient (REF) | payer OTHER, SELFPAY ==
[2024-07-18 11:59] LABS: % Basophils 0.7 % (0-2); % Eosinophils 2.1 % (0-6); % Immature Granulocytes 0.7 % (0-0.5); % Lymphocytes 15.9 % (20.5-51.1); % Monocytes 11.1 % (1.7-9.3); % Neutrophils 69.5 % (42.2-75.2); Absolute Eosinophils 0.1 10^3/uL (0-0.7); Absolute Lymphocytes 0.9 10^3/uL (1.2-3.4); Absolute Monocytes 0.6 10^3/uL (0.1-0.6); Hematocrit 31.9 % (39.0-52.0); Hemoglobin 10.6 g/dL (13.0-18.0); Mean Corp Hgb Conc. 33.2 g/dL (33.0-37.0); Mean Corpuscular Hgb 26.5 pg (27.0-31.0); Mean Corpuscular Volume 79.8 fL (80.0-94.0); Mean Platelet Volume 10.3 fL (7.4-10.4); Nucleated Red Blood Cells % 0 % (-); Platelet Count 197 10^3/uL (130-400); Red Cell Dist. Width 14.4 % (11.5-14.5); White Blood Cell Count 5.8 10^3/uL (4.8-10.8)
[2024-07-18 12:13] LABS: ALT (SGPT) 12 U/L (0-50); AST (SGOT) 18 U/L (17-59); Albumin 3.5 g/dl (3.5-5.0); Alkaline Phosphatase 53 U/L (38-126); Blood Urea Nitrogen 19 mg/dl (9-20); Calcium 8.9 mg/dl (8.4-10.2); Carbon Dioxide 22 mmol/L (22-30); Chloride 107 mmol/L (98-107); Glucose 86 mg/dl (70-99); Potassium 4.3 mmol/L (3.5-5.1); Sodium 142 mmol/L (135-145); Total Bilirubin 0.4 mg/dl (0.2-1.3); Total Protein 6.4 g/dl (6.3-8.2); eGFR > 60.00
== END ==
LOC: OLABWHC 11:30
PROVIDERS: ATTENDING PHYSICIAN Family Medicine
DX: Z47.1 Aftercare following joint replacement surgery (principal); Z96.641 Presence of right artificial hip joint
CPT/HCPCS: 36415; 80053; 85025; 86140

== ENCOUNTER → 2024-07-25 09:43 | Outpatient (REF) | payer OTHER, SELFPAY ==
[2024-07-25 11:12] LABS: % Basophils 0.5 % (0-2); % Eosinophils 3.3 % (0-6); % Immature Granulocytes 0.3 % (0-0.5); % Lymphocytes 16.8 % (20.5-51.1); % Monocytes 10.2 % (1.7-9.3); % Neutrophils 68.9 % (42.2-75.2); Absolute Eosinophils 0.2 10^3/uL (0-0.7); Absolute Monocytes 0.6 10^3/uL (0.1-0.6); Hematocrit 31.2 % (39.0-52.0); Hemoglobin 10.4 g/dL (13.0-18.0); Mean Corp Hgb Conc. 33.3 g/dL (33.0-37.0); Mean Corpuscular Hgb 26.1 pg (27.0-31.0); Mean Corpuscular Volume 78.4 fL (80.0-94.0); Nucleated Red Blood Cells % 0 % (-); Platelet Count 216 10^3/uL (130-400); Red Blood Cell Count 3.98 10^6/uL (4.70-6.10); Red Cell Dist. Width 14.2 % (11.5-14.5); White Blood Cell Count 5.8 10^3/uL (4.8-10.8)
[2024-07-25 11:30] LABS: ALT (SGPT) 13 U/L (0-50); AST (SGOT) 19 U/L (17-59); Albumin 3.2 g/dl (3.5-5.0); Alkaline Phosphatase 47 U/L (38-126); Blood Urea Nitrogen 18 mg/dl (9-20); Calcium 8.8 mg/dl (8.4-10.2); Carbon Dioxide 22 mmol/L (22-30); Chloride 110 mmol/L (98-107); Glucose 89 mg/dl (70-99); Potassium 3.9 mmol/L (3.5-5.1); Sodium 142 mmol/L (135-145); Total Bilirubin 0.2 mg/dl (0.2-1.3); Total Protein 5.9 g/dl (6.3-8.2); eGFR > 60.00
== END ==
LOC: OLABWHC 09:43
PROVIDERS: ATTENDING PHYSICIAN Family Medicine
DX: Z47.1 Aftercare following joint replacement surgery (principal); Z96.641 Presence of right artificial hip joint
CPT/HCPCS: 36415; 80053; 85025; 86140

== ENCOUNTER 2024-08-02 20:03 | Emergency (ER) | payer OTHER, SELFPAY ==
[2024-08-02 20:15] VITALS: BP 157/97
[2024-08-02 20:47] LABS: % Basophils 0.9 % (0-2); % Eosinophils 3.2 % (0-6); % Immature Granulocytes 0.6 % (0-0.5); % Lymphocytes 17.4 % (20.5-51.1); % Monocytes 10.3 % (1.7-9.3); % Neutrophils 67.6 % (42.2-75.2); Absolute Basophils 0.1 10^3/uL (0-0.2); Absolute Eosinophils 0.2 10^3/uL (0-0.7); Absolute Lymphocytes 1.2 10^3/uL (1.2-3.4); Absolute Monocytes 0.7 10^3/uL (0.1-0.6); Absolute Neutrophils 4.7 10^3/uL (1.4-6.5); Hematocrit 35.7 % (39.0-52.0); Hemoglobin 11.6 g/dL (13.0-18.0); Mean Corp Hgb Conc. 32.5 g/dL (33.0-37.0); Mean Corpuscular Hgb 26.1 pg (27.0-31.0); Mean Corpuscular Volume 80.2 fL (80.0-94.0); Mean Platelet Volume 9.4 fL (7.4-10.4); Nucleated Red Blood Cells % 0 % (-); Platelet Count 225 10^3/uL (130-400); Red Blood Cell Count 4.45 10^6/uL (4.70-6.10); Red Cell Dist. Width 14.5 % (11.5-14.5); White Blood Cell Count 6.9 10^3/uL (4.8-10.8)
[2024-08-02 21:18] LABS: ALT (SGPT) 12 U/L (0-50); AST (SGOT) 16 U/L (17-59); Alkaline Phosphatase 54 U/L (38-126); Blood Urea Nitrogen 21 mg/dl (9-20); Calcium 9.3 mg/dl (8.4-10.2); Carbon Dioxide 24 mmol/L (22-30); Chloride 106 mmol/L (98-107); Glucose 142 mg/dl (70-99); Potassium 4.2 mmol/L (3.5-5.1); Sodium 141 mmol/L (135-145); Total Bilirubin 0.3 mg/dl (0.2-1.3); eGFR > 60.00
[2024-08-02 22:30] VITALS: BP 134/86
[2024-08-02 22:31] VITALS: BMI 30.1
--- NOTE | 2024-08-02 22:39 | ED.GENMED ---
History of Present Illness
<GILBERT Small - Last Filed: 08/03/24 01:04>
General
Chief Complaint: Weakness
Source: patient and family
Exam Limitations: none
Time Seen by Provider: 08/02/24 22:27
Nursing documentation reviewed up to this point in time: agreed with
History of Present Illness
History of Present Illness:
Patient w/ PMH of R THR & L foot drag presents to the ED after a fall. Pt is being evaluated for L foot drop by neuro and recently finished rehab for gait. Pt's daughter states he was doing well w/ his gait until today. Noticed issue w/ walking
immediately before fall. Pt states he has been weak but did not realize how weak he was until fall today. He states he is feeling fine. Denies PINEDA, dizziness, abd pain, and N/V/D/C. He does not remember how he fell. Denies pain in either leg.
Past History
<GILBERT Small - Last Filed: 08/03/24 01:04>
Past History
ED Past Medical History: HTN and Psychiatric (Depression)
ED Past Surgical History: Cholecystectomy and Orthopedic (Left hip replacement)
Social History
Tobacco: Non-smoker
Alcohol: None
Drug: None
Personal:
Living: assisted living
Review of Systems
<GILBERT Small - Last Filed: 08/03/24 01:04>
Review of Systems
Other source history: family
Constitutional: Denies fever, fatigue or chills
EENT: Denies sore throat or runny nose
Respiratory: Denies cough or trouble breathing
Cardiac: Denies chest pain or palpitations
ABD/GI: Denies abdominal pain, nausea, vomiting, diarrhea or constipated
Musculoskeletal: Denies joint pain, joint swelling, muscle pain or muscle stiffness
Neurological: Reports weakness; Denies dizzy, headache or numbness
Phy Exam
<Jessica Taylor [facility] - Last Filed: 08/03/24 01:04>
General Physical Exam
General Presentation: well appearing
General age: appears stated age
General Skin: warm and dry
General Habitus: elderly
Eye Exam
Eye Exam: PERRL
Cardiovascular Exam
Cardiovascular Exam: regular rate/rhythm, no edema, no gallop and no murmur
Pulmonary Exam
Pulmonary Exam: lungs clear, no respiratory distress, no rales, no crackles, no rhonchi and no wheezing
Gastrointestinal Exam
Gastrointestinal Exam: normal bowel sounds, non tender, soft and non distended
Neurological Exam
Neurological Exam: alert, oriented x3 and speech normal
Musculoskeletal Exam
Musculoskeletal Exam: full ROM, edema (3+ BL LE pitting edema ) and other (no tenderness to palpation of BL knees. Full BL knee ROM w/o pain. No visible bruising or swelling. )
Course
<Jessica Taylor [facility] - Last Filed: 08/03/24 01:04>
Orders/Labs/Results
Orders:
Orders
08/02/24 20:19
Knee, Right 4 or More Views [CR Knee- Right 4 Or More View*] Urgent
Comment:
Reason For Exam: fall
08/02/24 20:21
Electrocardiogram (*1) Urgent
Reason for Study: Fatigue / Weakness
EKG- Treatment ONCE
08/02/24 20:36
Complete Blood Count/With Diff Urgent
Comprehensive Metabolic Panel Urgent
08/02/24 23:25
0.9% Sodium Chloride 500 ml [Nss] 500 ml IV BOLUS
Abnormal Lab Results
08/02/24
20:36
RBC 4.45 L 10^6/uL
(4.70-6.10)
Hgb 11.6 L g/dL
(13.0-18.0)
Hct 35.7 L %
(39.0-52.0)
MCH 26.1 L pg
(27.0-31.0)
MCHC 32.5 L g/dL
(33.0-37.0)
Absolute Monos (auto) 0.7 H 10^3/uL
(0.1-0.6)
Immature Gran % 0.6 H %
(0-0.5)
Lymphocytes % 17.4 L %
(20.5-51.1)
Monocytes % 10.3 H %
(1.7-9.3)
BUN 21 H mg/dl
(9-20)
Glucose 142 H mg/dl
(70-99)
AST 16 L U/L
(17-59)
08/02/24 20:36
08/02/24 20:36
Vital Signs
Initial and Last Documented VS:
Initial Vital Signs
Temp Pulse Resp BP Pulse Ox
98.7 F 82 18 157/97 96
08/02/24 20:15 08/02/24 20:15 08/02/24 20:15 08/02/24 20:15 08/02/24 20:15
Last Documented Vital Signs
Temp Pulse Resp BP Pulse Ox
98.7 F 82 18 134/86 98
08/02/24 20:15 08/02/24 20:15 08/02/24 20:15 08/02/24 22:30 08/02/24 22:32
<Taiwo Allen DO - Last Filed: 08/02/24 23:40>
Orders/Labs/Results
Orders:
Orders
08/02/24 20:19
Knee, Right 4 or More Views [CR Knee- Right 4 Or More View*] Urgent
Comment:
Reason For Exam: fall
08/02/24 20:21
Electrocardiogram (*1) Urgent
Reason for Study: Fatigue / Weakness
EKG- Treatment ONCE
08/02/24 20:36
Complete Blood Count/With Diff Urgent
Comprehensive Metabolic Panel Urgent
08/02/24 23:25
0.9% Sodium Chloride 500 ml [Nss] 500 ml IV BOLUS
Abnormal Lab Results
08/02/24
20:36
RBC 4.45 L 10^6/uL
(4.70-6.10)
Hgb 11.6 L g/dL
(13.0-18.0)
Hct 35.7 L %
(39.0-52.0)
MCH 26.1 L pg
(27.0-31.0)
MCHC 32.5 L g/dL
(33.0-37.0)
Absolute Monos (auto) 0.7 H 10^3/uL
(0.1-0.6)
Immature Gran % 0.6 H %
(0-0.5)
Lymphocytes % 17.4 L %
(20.5-51.1)
Monocytes % 10.3 H %
(1.7-9.3)
BUN 21 H mg/dl
(9-20)
Glucose 142 H mg/dl
(70-99)
AST 16 L U/L
(17-59)
08/02/24 20:36
08/02/24 20:36
Vital Signs
Initial and Last Documented VS:
Initial Vital Signs
Temp Pulse Resp BP Pulse Ox
98.7 F 82 18 157/97 96
08/02/24 20:15 08/02/24 20:15 08/02/24 20:15 08/02/24 20:15 08/02/24 20:15
Last Documented Vital Signs
Temp Pulse Resp BP Pulse Ox
98.7 F 82 18 134/86 98
08/02/24 20:15 08/02/24 20:15 08/02/24 20:15 08/02/24 22:30 08/02/24 22:32
<Taiwo Allen DO - Last Filed: 08/02/24 23:40>
MDM/Problems Addressed
Differential Diagnosis Includes:
Weakness, electrolyte abnormality, dehydration
Chronic conditions affecting care: HTN and Other (Post rehabilitation)
<GILBERT Small - Last Filed: 08/03/24 01:04>
*Critical Care Note
Total Time (30-74mins, 75-104mins- exclusive of procedures): Not Applicable
ED Attending Note
<GILBERT Small - Last Filed: 08/03/24 01:04>
-
Portions of this chart may have been created with voice recognition software.� Occasional wrong word or��sound alike� substitutions may have occurred due to the inherent limitations of voice recognition software.
<DO Dolores Abbott Last Filed: 08/02/24 23:40>
ED Attending Note
Patient seen and examined by attending physician: Yes
I performed the substantive portion of visit, reviewed & personally made and approve the management plan that is documented in note by myself or HERMES.: Yes
ED Attending Note:
This is a pleasant 89-year-old male that presents with increased weakness. Patient had infected hip replacement prostatic and a 2-month rehab assignment at [facility]. Patient according to daughter was doing well last Thursday when the
assignment ended. She noted that he has been progressively weakening. He did have a fall today. Patient moved from independent living to assisted living. Patient has no complaints. Denies chest pain or shortness of breath. He did fall on his
knee. Patient has been able to ambulate. Patient has no other complaints at this time. He does admit to drinking iced tea throughout the day but could drink more. Patient was seen in conjunction with the PA student. I have reviewed and agree
with the history and treatment plan presented. On my independent physical exam, patient is awake, alert, and oriented x3. Heart is regular rate and rhythm. Lungs are clear to auscultation bilaterally. Abdomen soft and nontender. Moves all 4
extremities. Skin is warm and dry.
Discharge Plan
Departure
Patient Disposition: Home (Routine Discharge)
Date of Disposition: 08/03/24
Time of Disposition: 00:41
Patient with high blood pressure during this ER visit?: Yes
Condition: Good
Discharge Problem:
Weakness, Acute dehydration
Instructions: Generalized Weakness (DC), BLOOD PRESSURE
Prescriptions:
No Action
aspirin 81 MG tablet,delayed release (DR/EC)
81 mg PO DAILY
multivitamin with folic acid [Tab-A-Antonio] 1 TABLET tablet
1 tab PO DAILY
vitamin E 670 mg (1,000 unit) Capsule
670 mg PO DAILY
meloxicam 15 mg Tablet
15 mg PO DAILY
clonazepam 0.5 mg Tablet
0.5 mg PO HS
Patient Comments:
06/08/24: last filled 05/06/24 for 30 tablets over 30 days
sertraline 100 mg Tablet
100 mg PO DAILY
ascorbic acid (vitamin C) [Vitamin C] 500 mg Tablet
500 mg PO NOON
tamsulosin 0.4 mg Capsule
0.8 mg PO NOON
oxybutynin chloride 5 mg Tablet Extended Release 24hr
5 mg PO DAILY
solifenacin 5 mg Tablet
5 mg PO DAILY
cholecalciferol (vitamin D3) [Vitamin D3] 50 mcg (2,000 unit) Tablet
50 mcg PO DAILY
calcium citrate-vitamin D3 500 mg-12.5 mcg (500 unit) Tablet,Chewable
1 tab PO NOON
Referrals:
Sina Garvin MD [Family Provider] -
Activity Restrictions/Additional Instructions:
It was a pleasure meeting you and taking part in your care. We hope for your continued healing and wellness.
Please read discharge instructions in their entirety. However, they are for general education and may not describe your exact diagnosis at discharge. Information on your ER visit and medical conditions were discussed with you along with appropriate
follow up information...
If indicated, please take your medications as instructed and indicated on discharge paperwork.
Please schedule a follow up appointment as directed. Call to schedule an appointment
Please return to the emergency department with ANY change in, persisting, or worsening of symptoms. If any of your symptoms do not improve, or persist, or become more severe within 6-12 hours, please return to the emergency department for further
care.
Please return to the emergency department if you develop a headache, neck pain/stiffness, fever greater than 100.4F, chest pain, shortness of breath, persistent nausea, vomiting, slurred speech, difficulty walking, numbness/tingling, weakness, signs
of infection or any other symptoms that are worrisome to you.
If you have any questions or concerns please do not hesitate to call the Hospital at or E-mail me directly at [email or web address]
Interventions
Interventions:
*General Assessment Last Done: 08/02/24 22:30
*Neglect/Abuse Screening Last Done: 08/02/24 20:15
*ED COVID-19 Vaccine History Last Done: 08/02/24 20:15
ED- Cardiac Assessment Last Done: 08/02/24 23:48
ED- Neurological Assessment Last Done: 08/02/24 22:32
ED- Pulmonary Assessment Last Done: 08/02/24 22:32
Discharge Date and Time
Print Language: [place]
[2024-08-02 23:00] VITALS: BP 149/79
[2024-08-02] MEDS: NSS 500 IV (23:46)
== END 2024-08-03 01:05 | disposition home or self-care (01) ==
LOC: EMR 20:03
PROVIDERS: Student in an Organized Health Care Education/Training Program; EMERGENCY PHYSICIAN Student in an Organized Health Care Education/Training Program; FAMILY PHYSICIAN Internal Medicine
DX: R53.1 Weakness (principal); E86.0 Dehydration; W19.XXXA Unspecified fall, initial encounter; I10 Essential (primary) hypertension; F32.A Depression, unspecified; Z90.49 Acquired absence of other specified parts of digestive tract; Z96.642 Presence of left artificial hip joint
CPT/HCPCS: 99283; 73564; 80053; 85025; 93005

== ENCOUNTER 2024-08-08 20:08 | Emergency (ER) | payer OTHER, SELFPAY ==
[2024-08-08 20:16] VITALS: BP 147/91
--- NOTE | 2024-08-08 20:21 | ED.MUSCINJ ---
HPI-Injury
<Diann Mejia, FILM WASHER - Last Filed: 08/08/24 20:21>
General
Chief Complaint: Musculo-Skeletal Complaint
Time Seen by Provider: 08/09/24 00:00
<Davy Medellin DO - Last Filed: 08/09/24 00:19>
General
Source: patient and family
Nursing documentation reviewed up to this point in time: agreed with
History of Present Illness-Injury
Is this injury a work related problem?: No
Is pt an associate of [facility]?: No
Initial Injury comments:
89-year-old male slip and fall injured his left shoulder, no head strike, no chest pain or shortness of breath
Had a hip replacement at [facility] a few months ago complicated with an infection and required a redo,
He has had some lower extremity weakness chronically, called neurology, scheduled to have an MRI
Lives in personal-care at [facility]
ED Provider Triage
<Diann Mejia, FILM WASHER - Last Filed: 08/08/24 20:21>
-
Patient seen by provider in Triage?: Seen in Triage
Attestation: A medical screening examination has been initiated by a qualified medical provider. Based on the assessment performed at this time, it has been determined that an emergent medical condition may exist and the patient has been informed
that further medical evaluation and possible additional diagnostic testing may be needed.
HPI: 89-year-old male from [facility] where he lives in his own apartment, he slid off the couch and injured his left shoulder.
GENERAL: Alert , in no apparent distress
EYE: No visual abnormalities.
ENT: No visible abnormalities.
LUNGS: No acute respiratory distress
NEUROLOGICAL: Alert and oriented
SKIN: Skin intact. No visible changes.
MUSCULOSKELETAL: Moving extremities normally
PSYCH: Normal and appropriate interaction.
This is a medical evaluation conducted in person to initiate diagnostic evaluation and provide initial therapeutics. Please see further documentation by the treating clinician.
Past History
<Diann Mejia, FILM WASHER - Last Filed: 08/08/24 20:21>
Past History
ED Past Medical History: HTN and Psychiatric (Depression)
ED Past Surgical History: Cholecystectomy and Orthopedic (Left hip replacement)
Social History
Tobacco: Non-smoker
Alcohol: None
Drug: None
Personal:
Living: assisted living
Phy Exam
<Davy Medellin, DO - Last Filed: 08/09/24 00:19>
Physical Exam
Physical Exam:
Physical Exam
General: no apparent distress, not acutely ill
Neck: No tongue bite no midline neck tenderness tenderness over the left a acromioclavicular
Heart: s1/s2 regular rate and rhythm, no murmur. equal radial pulses.
Lungs: no acute respiratory distress. clear bilaterally
Neuro: alert and oriented.
Skin: no rash
Psychiatric: well kept. interactive and cooperative
Extremities: No pain with range of motion of the hip
Injury Course
<Diann Mejia, FILM WASHER - Last Filed: 08/08/24 20:21>
Orders/Labs/Results
Orders:
Orders
08/08/24 20:21
CR Shoulder, Trauma - Left Urgent
Comment:
Reason For Exam: fall
08/09/24 00:14
Ice Pack-Treatment DIRECTED
Location: shoulder
Sling Left-Treatment ONCE
Acetaminophen [Tylenol] 650 mg PO NOW STA
<Davy Medellin, DO - Last Filed: 08/09/24 00:19>
Orders/Labs/Results
Orders:
Orders
08/08/24 20:21
CR Shoulder, Trauma - Left Urgent
Comment:
Reason For Exam: fall
08/09/24 00:14
Ice Pack-Treatment DIRECTED
Location: shoulder
Sling Left-Treatment ONCE
Acetaminophen [Tylenol] 650 mg PO NOW STA
<Davy Medellin, DO - Last Filed: 08/09/24 00:19>
MDM/Problems Addressed
Differential Diagnosis Includes:
Fracture strain dislocation
MDM/Problems Addressed:
Fracture strain dislocation
Chronic conditions affecting care:
Prior orthopedic injury
Chronic conditions affecting care: Neurological disorder
Acute Exacerbation and/or Progression of Chronic Illness: Neurological disorder
<Davy Medellin, DO - Last Filed: 08/09/24 00:19>
*Radiology
Radiology exam reviewed: radiology read reviewed
*Pulse Oximetry
Patient hypoxic: no
*Critical Care Note
Total Time (30-74mins, 75-104mins- exclusive of procedures): Not Applicable
<Davy Medellin, DO - Last Filed: 08/09/24 00:19>
Update Note
Update Note:
X-ray noted I did receive a call from radiology will treat with a sling and ice
ED Attending Note
<Diann Mejia FILM WASHER - Last Filed: 08/08/24 20:21>
-
Portions of this chart may have been created with voice recognition software.� Occasional wrong word or��sound alike� substitutions may have occurred due to the inherent limitations of voice recognition software.
Discharge Plan
Departure
Patient Disposition: Home (Routine Discharge)
Date of Disposition: 08/09/24
Time of Disposition: 00:15
Patient with high blood pressure during this ER visit?: No
Condition: Good
Discharge Problem:
Fracture of clavicle
Instructions: Broken Collarbone ED
Prescriptions:
No Action
aspirin 81 MG tablet,delayed release (DR/EC)
81 mg PO DAILY
multivitamin with folic acid [Tab-A-Antonio] 1 TABLET tablet
1 tab PO DAILY
vitamin E 670 mg (1,000 unit) Capsule
670 mg PO DAILY
meloxicam 15 mg Tablet
15 mg PO DAILY
clonazepam 0.5 mg Tablet
0.5 mg PO HS
Patient Comments:
06/08/24: last filled 05/06/24 for 30 tablets over 30 days
sertraline 100 mg Tablet
100 mg PO DAILY
ascorbic acid (vitamin C) [Vitamin C] 500 mg Tablet
500 mg PO NOON
tamsulosin 0.4 mg Capsule
0.8 mg PO NOON
oxybutynin chloride 5 mg Tablet Extended Release 24hr
5 mg PO DAILY
solifenacin 5 mg Tablet
5 mg PO DAILY
cholecalciferol (vitamin D3) [Vitamin D3] 50 mcg (2,000 unit) Tablet
50 mcg PO DAILY
calcium citrate-vitamin D3 500 mg-12.5 mcg (500 unit) Tablet,Chewable
1 tab PO NOON
Referrals:
Leif Meza MD [Active] - Next open appointment
Activity Restrictions/Additional Instructions:
Use sling, ice, for the next few days, Tylenol every 4-6 hours for pain
Interventions
Interventions:
*Risk Screen - Suicide Last Done: 08/08/24 20:16
*General Assessment Last Done: 08/08/24 20:16
*Neglect/Abuse Screening Last Done: 08/08/24 20:16
Discharge Date and Time
Print Language: PERSIAN
[2024-08-09] MEDS: TYLENOL 650 MG PO (00:47)
[2024-08-09 01:05] VITALS: BP 142/80
== END 2024-08-09 01:05 | disposition home or self-care (01) ==
LOC: EMR 20:08
PROVIDERS: EMERGENCY PHYSICIAN Emergency Medicine; FAMILY PHYSICIAN Internal Medicine
DX: S42.032A Displaced fracture of lateral end of left clavicle, initial encounter for closed fracture (principal); W01.0XXA Fall on same level from slipping, tripping and stumbling without subsequent striking against object, initial encounter; I10 Essential (primary) hypertension; R53.1 Weakness; Z90.49 Acquired absence of other specified parts of digestive tract; Z96.643 Presence of artificial hip joint, bilateral; F32.A Depression, unspecified
CPT/HCPCS: 99283; 73030

== ENCOUNTER → 2024-08-22 09:43 | Outpatient (REF) | payer OTHER, SELFPAY ==
[2024-08-22 12:22] LABS: % Basophils 0.8 % (0-2); % Eosinophils 3.5 % (0-6); % Immature Granulocytes 0.8 % (0-0.5); % Lymphocytes 18.7 % (20.5-51.1); % Monocytes 9.5 % (1.7-9.3); % Neutrophils 66.7 % (42.2-75.2); Absolute Basophils 0.1 10^3/uL (0-0.2); Absolute Eosinophils 0.3 10^3/uL (0-0.7); Absolute Immature Granulocytes 0.1 10^3/uL (0-0.05); Absolute Lymphocytes 1.5 10^3/uL (1.2-3.4); Absolute Monocytes 0.8 10^3/uL (0.1-0.6); Absolute Neutrophils 5.3 10^3/uL (1.4-6.5); Hematocrit 32.8 % (39.0-52.0); Hemoglobin 10.9 g/dL (13.0-18.0); Mean Corp Hgb Conc. 33.2 g/dL (33.0-37.0); Mean Corpuscular Hgb 25.3 pg (27.0-31.0); Mean Corpuscular Volume 76.1 fL (80.0-94.0); Mean Platelet Volume 9.9 fL (7.4-10.4); Nucleated Red Blood Cells % 0 % (-); Platelet Count 234 10^3/uL (130-400); Red Blood Cell Count 4.31 10^6/uL (4.70-6.10); Red Cell Dist. Width 14.2 % (11.5-14.5)
[2024-08-22 12:35] LABS: ALT (SGPT) 11 U/L (0-50); AST (SGOT) 15 U/L (17-59); Alkaline Phosphatase 59 U/L (38-126); Blood Urea Nitrogen 18 mg/dl (9-20); Calcium 8.7 mg/dl (8.4-10.2); Carbon Dioxide 24 mmol/L (22-30); Chloride 109 mmol/L (98-107); Glucose 91 mg/dl (70-99); Magnesium 1.9 mg/dl (1.6-2.3); Potassium 4.1 mmol/L (3.5-5.1); Sodium 142 mmol/L (135-145); Total Bilirubin 0.5 mg/dl (0.2-1.3); Total Protein 5.9 g/dl (6.3-8.2); eGFR > 60.00
== END ==
LOC: OLABWHC 09:43
PROVIDERS: ATTENDING PHYSICIAN Family Medicine
DX: J84.10 Pulmonary fibrosis, unspecified (principal); Z79.2 Long term (current) use of antibiotics; I50.32 Chronic diastolic (congestive) heart failure; T84.51XD Infection and inflammatory reaction due to internal right hip prosthesis, subsequent encounter
CPT/HCPCS: 36415; 80053; 83735; 85025

== ENCOUNTER → 2024-08-24 09:59 | Outpatient (REF) | payer OTHER, SELFPAY | LOC: PAVMRI 09:59 | PROVIDERS: ATTENDING PHYSICIAN Specialist; FAMILY PHYSICIAN Internal Medicine | DX: R26.81 Unsteadiness on feet (principal) | CPT/HCPCS: 70551 ==

== ENCOUNTER → 2024-11-01 20:00 | Outpatient (REF) | payer OTHER, SELFPAY ==
[2024-11-02 09:21] LABS: Urine Albumin Negative (Neg - Trace); Urine Bilirubin Negative (Negative); Urine Character Clear (Clear); Urine Color Yellow; Urine Glucose Negative (Negative); Urine Ketone Negative (Negative); Urine Leukocyte Trace (Negative); Urine Nitrite Negative (Negative); Urine Occult Blood Negative (Negative); Urine Urobilinogen Negative (Neg - 1+)
[2024-11-02 11:54] LABS: Urine Mucus Many
[2024-11-02 11:55] LABS: Urine Squamous Cell 0-2 /LPF (Few)
[2024-11-02 11:56] LABS: Urine Amorphous Seen; Urine Urothelial Cell 0-2 /LPF (FEW)
[2024-11-02 11:57] LABS: Urine Bacteria Few (Negative); Urine Calcium Oxalate Crystals Seen; Urine Red Blood Cell 0-2 /HPF (0-2)
== END ==
LOC: OLABWPC 20:00
PROVIDERS: ATTENDING PHYSICIAN Internal Medicine
DX: R30.0 Dysuria (principal)
CPT/HCPCS: 81003; 81015

== ENCOUNTER → 2024-12-15 10:01 | Outpatient (REF) | payer OTHER, SELFPAY ==
[2024-12-15 11:06] LABS: % Basophils 0.8 % (0-2); % Eosinophils 3.2 % (0-6); % Immature Granulocytes 0.6 % (0-0.5); % Lymphocytes 19.9 % (20.5-51.1); % Monocytes 10.8 % (1.7-9.3); % Neutrophils 64.7 % (42.2-75.2); Absolute Basophils 0.1 10^3/uL (0-0.2); Absolute Eosinophils 0.2 10^3/uL (0-0.7); Absolute Lymphocytes 1.2 10^3/uL (1.2-3.4); Absolute Monocytes 0.7 10^3/uL (0.1-0.6); Hematocrit 37.2 % (39.0-52.0); Hemoglobin 12.5 g/dL (13.0-18.0); Mean Corp Hgb Conc. 33.6 g/dL (33.0-37.0); Mean Corpuscular Hgb 26.9 pg (27.0-31.0); Mean Platelet Volume 9.9 fL (7.4-10.4); Nucleated Red Blood Cells % 0 % (-); Platelet Count 197 10^3/uL (130-400); Red Blood Cell Count 4.65 10^6/uL (4.70-6.10); Red Cell Dist. Width 15.9 % (11.5-14.5); White Blood Cell Count 6.2 10^3/uL (4.8-10.8)
[2024-12-15 11:26] LABS: ALT (SGPT) < 10 U/L (0-50); AST (SGOT) 16 U/L (17-59); Albumin 3.3 g/dl (3.5-5.0); Alkaline Phosphatase 52 U/L (38-126); Blood Urea Nitrogen 18 mg/dl (9-20); Calcium 8.9 mg/dl (8.4-10.2); Carbon Dioxide 24 mmol/L (22-30); Chloride 108 mmol/L (98-107); Glucose 90 mg/dl (70-99); HDL Cholesterol 27 mg/dl; LDL Cholesterol, Calculated 86 mg/dl; Potassium 3.9 mmol/L (3.5-5.1); Sodium 138 mmol/L (135-145); Total Bilirubin 0.9 mg/dl (0.2-1.3); Total Cholesterol 127 mg/dl (50-199); Total Protein 5.9 g/dl (6.3-8.2); Triglyceride 71 mg/dl (10-149); Very Low Density Lipoprotein 14 mg/dl (0-30); eGFR > 60.00
== END ==
LOC: OLABWPC 10:01
PROVIDERS: ATTENDING PHYSICIAN Internal Medicine
DX: Z00.01 Encounter for general adult medical examination with abnormal findings (principal)
CPT/HCPCS: 36415; 80053; 80061; 85025

== ENCOUNTER 2024-12-30 10:38 | Emergency (ER) | payer OTHER, SELFPAY ==
[2024-12-30 10:40] VITALS: BP 163/87
--- NOTE | 2024-12-30 11:46 | ED.MUSCINJ ---
HPI-Injury
General
Chief Complaint: Fall
Source: patient and family
Exam Limitations: none
Time Seen by Provider: 12/30/24 10:41
Nursing documentation reviewed up to this point in time: agreed with
History of Present Illness-Injury
Is this injury a work related problem?: No
Is pt an associate of [facility]?: No
Initial Injury comments:
89-year-old male no blood thinners no alcohol trip and fall over his walker struck his face on the ground has abrasions on his face superficial laceration of the bridge of his nose no headache no neck pain no arm or leg weakness no hip pain unsure
of his last tetanus
Past History
Past History
ED Past Medical History: HTN and Psychiatric (Depression)
ED Past Surgical History: Cholecystectomy and Orthopedic (Left hip replacement)
Social History
Tobacco: Non-smoker
Alcohol: None
Drug: None
Personal:
Living: assisted living
Employment: Retired
Review of Systems
Review of Systems
All Other Systems: Not applicable
EENT: Reports other (Pain on the nose)
Musculoskeletal: Denies joint pain
Neurological: Denies headache
Phy Exam
Physical Exam
Physical Exam:
Physical Exam
General: 89-year-old male obvious bruising about the face normal mental status
Neck: No tongue bite no posterior neck pain abrasion over the left forehead and midface, superficial abrasion over the bridge of the
Heart: Regular
Lungs: no acute respiratory distress. clear bilaterally
Abdomen: Nontender
Neuro: alert and oriented. no focal neurological deficits
Skin: no rash
Psychiatric: well kept. interactive and cooperative
Extremities: Lift his arms off the bed without difficulty no pain with range of motion of his hips
Injury Course
Orders/Labs/Results
Orders:
Orders
12/30/24 11:[address] Facial Bones W/o Iv Contras Urgent
Comment:
Reason For Exam: fall
CT Head W/o Iv Contrast Urgent
Comment:
Reason For Exam: fall
12/30/24 11:31
CT Cervical Spine W/o Iv Contr Urgent
Comment:
Reason For Exam: fall
Acetaminophen [Tylenol] 650 mg PO NOW STA
Tetanus/Diphth/Acelpertussis [Adacel] 0.5 ml IM .ONCE ONE
12/30/24 12:57
Wound Dressing- Treatment ONCE
Location of Wound: nose
MDM/Problems Addressed
Differential Diagnosis Includes:
Nasal fracture, contusion intracerebral hemorrhage skull fracture or C-spine injury
MDM/Problems Addressed:
Fall
*Radiology
Radiology exam reviewed: radiology read reviewed
*Pulse Oximetry
Patient hypoxic: no
*Critical Care Note
Total Time (30-74mins, 75-104mins- exclusive of procedures): Not Applicable
Update Note
Update Note:
Update CT reports noted, patient is comfortable updated him and his family member, does not appear to have a septal hematoma will clean up his wound and see if anything needs sutured
ED Attending Note
-
Portions of this chart may have been created with voice recognition software.� Occasional wrong word or��sound alike� substitutions may have occurred due to the inherent limitations of voice recognition software.
Discharge Plan
Departure
Patient Disposition: Home (Routine Discharge)
Date of Disposition: 12/30/24
Time of Disposition: 13:17
Patient with high blood pressure during this ER visit?: No
Condition: Good
Discharge Problem:
Closed fracture nasal bone
Instructions: Preventing falls in adults, Skin Abrasions (DC), Nose Fracture ED
Prescriptions:
No Action
aspirin 81 MG tablet,delayed release (DR/EC)
81 mg PO DAILY
multivitamin with folic acid [Tab-A-Antonio] 1 TABLET tablet
1 tab PO DAILY
vitamin E 670 mg (1,000 unit) Capsule
670 mg PO DAILY
meloxicam 15 mg Tablet
15 mg PO DAILY
clonazepam 0.5 mg Tablet
0.5 mg PO HS
Patient Comments:
06/08/24: last filled 05/06/24 for 30 tablets over 30 days
sertraline 100 mg Tablet
100 mg PO DAILY
ascorbic acid (vitamin C) [Vitamin C] 500 mg Tablet
500 mg PO NOON
tamsulosin 0.4 mg Capsule
0.8 mg PO NOON
oxybutynin chloride 5 mg Tablet Extended Release 24hr
5 mg PO DAILY
solifenacin 5 mg Tablet
5 mg PO DAILY
cholecalciferol (vitamin D3) [Vitamin D3] 50 mcg (2,000 unit) Tablet
50 mcg PO DAILY
calcium citrate-vitamin D3 500 mg-12.5 mcg (500 unit) Tablet,Chewable
1 tab PO NOON
Referrals:
Sina Garvin MD [Family Provider] - Next open appointment
Activity Restrictions/Additional Instructions:
Tylenol as needed for pain
Ice to your nose
Antibiotic ointment to your abrasions
Interventions
Interventions:
*Risk Screen - Suicide Last Done: 12/30/24 10:40
*General Assessment Last Done: 12/30/24 10:40
*ED COVID-19 Vaccine History Last Done: 12/30/24 12:36
ED-Musculoskeletal Assessment Last Done: 12/30/24 10:43
ED- Neurological Assessment Last Done: 12/30/24 10:43
ED-Skin Assessment Last Done: 12/30/24 10:43
Discharge Date and Time
Print Language: YORUBA
[2024-12-30] MEDS: TYLENOL 650 MG PO (12:00)
[2024-12-30] MEDS: ADACEL 0.5 ML IM (12:01)
[2024-12-30 12:36] VITALS: BP 152/82
== END 2024-12-30 14:00 | disposition home or self-care (01) ==
LOC: EMR 10:38
PROVIDERS: EMERGENCY PHYSICIAN Emergency Medicine; FAMILY PHYSICIAN Internal Medicine
DX: S02.2XXA Fracture of nasal bones, initial encounter for closed fracture (principal); S00.81XA Abrasion of other part of head, initial encounter; W01.0XXA Fall on same level from slipping, tripping and stumbling without subsequent striking against object, initial encounter; I10 Essential (primary) hypertension; Z90.49 Acquired absence of other specified parts of digestive tract; Z23 Encounter for immunization
CPT/HCPCS: 99284; 90471; 70450; 70486; 72125; 90715

== ENCOUNTER 2025-01-01 13:55 | Inpatient (IN) | payer OTHER, SELFPAY ==
[2025-01-01] VITALS (22 sets, daily range): BP systolic 82–159; BP diastolic 49–127; BMI 29.4; BMI 29.3
--- NOTE | 2025-01-01 04:09 | EDRN ---
Updated daughter and patient on delay, patients nose did stop bleeding and clip is off of the nose
--- NOTE | 2025-01-01 04:49 | ED.GENMED ---
History of Present Illness
<Luis Armando Morales DO - Last Filed: 01/01/25 04:56>
General
Chief Complaint: Nose Bleed
Source: patient and family
Time Seen by Provider: 01/01/25 04:07
History of Present Illness
History of Present Illness:
89-year-old male who presents with epistaxis. Patient recently had a fall and presented to the emergency department had CT of his head, neck and facial bones. Patient been doing well but tonight started to bleed from his nose. He then vomited
blood. Presents with a nose clip but took it off and is no longer bleeding. Patient has no other complaints. He has reported mild neck pain but again had a negative head CT and negative neck CT. Patient my assessment offers no complaints.
Daughter states that it was reported that he was bleeding a lot. 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
Past History
<Luis Armando Morales DO - Last Filed: 01/01/25 04:56>
Past History
ED Past Medical History: HTN, Psychiatric (Depression) and Other (Pulmonary fibrosis)
ED Past Surgical History: Cholecystectomy and Orthopedic (Left hip replacement)
Social History
Tobacco: Non-smoker
Alcohol: None
Drug: None
Personal:
Living: assisted living
Employment: Retired
Phy Exam
<Luis Armando Morales DO - Last Filed: 01/01/25 04:56>
Physical Exam
Physical Exam:
CONSTITUTIONAL Patient alert and oriented to person. Well-appearing. Vital signs reviewed.
HEAD atraumatic, normocephalic.
EYES eyelids normal to inspection, Extraocular muscles intact, Conjunctiva normal, Sclera normal.
ENT dried blood noted at the nares on the left. There is mucosal break noted to the left septum. Right appears clear
NECK normal range of motion, Trachea midline, no jugular venous distention.
RESPIRATORY CHEST No respiratory distress noted, Chest expansion equal
UPPER EXTREMITY range of motion normal, Motor strength normal, no cyanosis, no edema.
LOWER EXTREMITY range of motion normal, Motor strength normal, no cyanosis, no edema.
NEURO Speech normal, No focal motor deficits, Cranial Nerves intact to screening exam.
SKIN skin warm, dry, and normal in color.
Course
<Luis Armando Morales, DO - Last Filed: 01/01/25 04:56>
Orders/Labs/Results
Orders:
Orders
01/01/25 06:09
Ondansetron Orally Disint [Zofran Odt (Orally Disintegrating)] 4 mg .ROUTE .[facility]
01/01/25 06:10
Ondansetron Orally Disint [Zofran Odt (Orally Disintegrating)] 4 mg PO NOW STA
01/01/25 09:21
Case Management Consult ONCE
Case Management Consult: Discharge Planning
01/01/25 09:32
Physical Therapy Consult [Pt Eval And Treat] Urgent
Activity Level: As Tolerated
01/01/25 10:37
Complete Blood Count/With Diff Urgent
Comprehensive Metabolic Panel Urgent
01/01/25 10:39
0.9% Sodium Chloride 1000 ml [Nss] 1,000 ml IV BOLUS
01/01/25 11:11
CR Chest Portable - 1 View Urgent
Comment:
Reason For Exam: leukocytosis
Reason Study Needs to be Portable: Patient Unstable
01/01/25 11:14
Electrocardiogram (*1) Urgent
Reason for Study: Tachycardia
EKG- Treatment ONCE
01/01/25 11:15
Blood Culture Q30M
LOREN Source: Blood/Venous
Specimen Description:
01/01/25 11:17
Lactic Acid Urgent
Blood Culture [id number]
LOREN Source: Blood/Venous
Specimen Description:
01/01/25 11:26
Blood Culture Q30M
LOREN Source: Blood/Venous
Specimen Description:
01/01/25 11:38
Pantoprazole [Protonix IV] 80 mg IV NOW STA
01/01/25 11:44
0.9% Sodium Chloride [Nss (Preservative Free)] 20 ml IV NOW STA
01/01/25 11:45
Pantoprazole 80 mg/100 ml Nss [Protonix] 80 mg in 100 ml IV Q10H
01/01/25 12:[address] Non Medication Order As Directed
Physician Order: please TT me when med rec complete
Above order entered?: Yes
01/01/25 15:15
Lactic Acid Q4H
Comment: CANCEL 2nd LACTIC ACID IF 1st LACTIC ACID IS LESS THAN 2
01/02/25 11:14
Blood Culture [id number]
LOREN Source: Blood/Venous
Specimen Description:
Abnormal Lab Results
01/01/25 01/01/25
10:37 11:17
WBC 28.6 H 10^3/uL
(4.8-10.8)
RBC 4.26 L 10^6/uL
(4.70-6.10)
Hgb 11.7 L g/dL
(13.0-18.0)
Hct 33.6 L %
(39.0-52.0)
MCV 78.9 L fL
(80.0-94.0)
RDW 15.2 H %
(11.5-14.5)
Abs Immat Gran (auto) 0.3 H 10^3/uL
(0-0.05)
Absolute Neuts (auto) 24.7 H 10^3/uL
(1.4-6.5)
Absolute Monos (auto) 2.3 H 10^3/uL
(0.1-0.6)
Immature Gran % 0.9 H %
(0-0.5)
Neutrophils % 86.2 H %
(42.2-75.2)
Lymphocytes % 4.8 L %
(20.5-51.1)
Chloride 108 H mmol/L
(98-107)
Carbon Dioxide 19 L mmol/L
(22-30)
BUN 35 H mg/dl
(9-20)
Glucose 149 H mg/dl
(70-99)
Lactic Acid 2.5 H mmol/L
(0.7-2.0)
AST 16 L U/L
(17-59)
Total Protein 6.1 L g/dl
(6.3-8.2)
Albumin 3.4 L g/dl
(3.5-5.0)
01/01/25 10:37
01/01/25 10:37
Vital Signs
Initial and Last Documented VS:
Initial Vital Signs
Temp Pulse Resp BP Pulse Ox
36.5 C 100 22 104/57 93
01/01/25 02:45 01/01/25 02:45 01/01/25 02:45 01/01/25 02:45 01/01/25 02:45
Last Documented Vital Signs
Temp Pulse Resp BP Pulse Ox
36.4 C 115 28 111/51 100
01/01/25 11:06 01/01/25 12:20 01/01/25 10:45 01/01/25 12:20 01/01/25 12:02
<Kp Botello, DO - Last Filed: 01/01/25 13:16>
Orders/Labs/Results
Orders:
Orders
01/01/25 06:09
Ondansetron Orally Disint [Zofran Odt (Orally Disintegrating)] 4 mg .ROUTE .[facility]
01/01/25 06:10
Ondansetron Orally Disint [Zofran Odt (Orally Disintegrating)] 4 mg PO NOW STA
01/01/25 09:21
Case Management Consult ONCE
Case Management Consult: Discharge Planning
01/01/25 09:32
Physical Therapy Consult [Pt Eval And Treat] Urgent
Activity Level: As Tolerated
01/01/25 10:37
Complete Blood Count/With Diff Urgent
Comprehensive Metabolic Panel Urgent
01/01/25 10:39
0.9% Sodium Chloride 1000 ml [Nss] 1,000 ml IV BOLUS
01/01/25 11:11
CR Chest Portable - 1 View Urgent
Comment:
Reason For Exam: leukocytosis
Reason Study Needs to be Portable: Patient Unstable
01/01/25 11:14
Electrocardiogram (*1) Urgent
Reason for Study: Tachycardia
EKG- Treatment ONCE
01/01/25 11:15
Blood Culture Q30M
LOREN Source: Blood/Venous
Specimen Description:
01/01/25 11:17
Lactic Acid Urgent
Blood Culture [id number]
LOREN Source: Blood/Venous
Specimen Description:
01/01/25 11:26
Blood Culture Q30M
LOREN Source: Blood/Venous
Specimen Description:
01/01/25 11:38
Pantoprazole [Protonix IV] 80 mg IV NOW STA
01/01/25 11:44
0.9% Sodium Chloride [Nss (Preservative Free)] 20 ml IV NOW STA
01/01/25 11:45
Pantoprazole 80 mg/100 ml Nss [Protonix] 80 mg in 100 ml IV Q10H
01/01/25 12:[address] Non Medication Order As Directed
Physician Order: please TT me when med rec complete
Above order entered?: Yes
01/01/25 15:15
Lactic Acid Q4H
Comment: CANCEL 2nd LACTIC ACID IF 1st LACTIC ACID IS LESS THAN 2
01/02/25 11:14
Blood Culture [id number]
LOREN Source: Blood/Venous
Specimen Description:
Abnormal Lab Results
01/01/25 01/01/25
10:37 11:17
WBC 28.6 H 10^3/uL
(4.8-10.8)
RBC 4.26 L 10^6/uL
(4.70-6.10)
Hgb 11.7 L g/dL
(13.0-18.0)
Hct 33.6 L %
(39.0-52.0)
MCV 78.9 L fL
(80.0-94.0)
RDW 15.2 H %
(11.5-14.5)
Abs Immat Gran (auto) 0.3 H 10^3/uL
(0-0.05)
Absolute Neuts (auto) 24.7 H 10^3/uL
(1.4-6.5)
Absolute Monos (auto) 2.3 H 10^3/uL
(0.1-0.6)
Immature Gran % 0.9 H %
(0-0.5)
Neutrophils % 86.2 H %
(42.2-75.2)
Lymphocytes % 4.8 L %
(20.5-51.1)
Chloride 108 H mmol/L
(98-107)
Carbon Dioxide 19 L mmol/L
(22-30)
BUN 35 H mg/dl
(9-20)
Glucose 149 H mg/dl
(70-99)
Lactic Acid 2.5 H mmol/L
(0.7-2.0)
AST 16 L U/L
(17-59)
Total Protein 6.1 L g/dl
(6.3-8.2)
Albumin 3.4 L g/dl
(3.5-5.0)
01/01/25 10:37
01/01/25 10:37
Vital Signs
Initial and Last Documented VS:
Initial Vital Signs
Temp Pulse Resp BP Pulse Ox
36.5 C 100 22 104/57 93
01/01/25 02:45 01/01/25 02:45 01/01/25 02:45 01/01/25 02:45 01/01/25 02:45
Last Documented Vital Signs
Temp Pulse Resp BP Pulse Ox
36.4 C 115 28 111/51 100
01/01/25 11:06 01/01/25 12:20 01/01/25 10:45 01/01/25 12:20 01/01/25 12:02
Procedures
<Luis Armando Morales DO - Last Filed: 01/01/25 04:56>
Nosebleed
Treatment: Epistat nasal catheter
Post treatment bleeding: none- good control
<Luis Armando Morales DO - Last Filed: 01/01/25 04:56>
MDM/Problems Addressed
MDM/Problems Addressed:
Epistaxis, nasal fracture
<Luis Armando Morales DO - Last Filed: 01/01/25 04:56>
*Pulse Oximetry
Patient hypoxic: no
*Critical Care Note
Total Time (30-74mins, 75-104mins- exclusive of procedures): Not Applicable
Data Reviewed
Review of Other/Old Records Reveals: Radiology Studies (Radiology results from 12/30/2024 reviewed revealing no cervical spine fracture and no intracranial hemorrhage)
Source: patient and family
Further Testing Considered But Not Given:
Considered repeat head CT but no new neurological complaints
<Luis Armando Morales DO - Last Filed: 01/01/25 04:56>
Patient Management
Escalation/DeEscalation of care consider admission/obs:
Epistaxis had resolved but in light of how much she was bleeding and the fact that he does have a mucosal break with a fracture, inflatable nasal packing placed to the left naris. No further bleeding. Patient tolerated procedure well. Cover the
antibiotics and outpatient ENT follow-up
<Kp Botello, DO - Last Filed: 01/01/25 13:16>
Update Note
Update Note:
After patient was initially dispositioned back to his facility, we were notified by that facility that they were unwilling to take him back feeling that he needs a higher level of care. We then had Mery from care management get involved and she
recommended physical therapy consultation. During physical therapy, the patient started having a general unwell feeling and then had large amount of coffee-ground emesis. I suspect that the emesis is related to the recent nosebleed/swallowed
blood. He was then placed on the monitor and was found to be tachycardic and hypotensive. He was given IV fluids. His white count is markedly elevated at 28.6. His hemoglobin is down to 11.7 from 12.53 weeks ago. BUN also noted to be elevated.
Given the leukocytosis, chest x-ray was obtained which was unremarkable. EKG showed atrial fibrillation with ventricular rate of 128. Given his overall general unwell appearance with concerning vital signs, hospitalist accepts for further
management.
ED Attending Note
<Luis Armando Morales, DO - Last Filed: 01/01/25 04:56>
-
Portions of this chart may have been created with voice recognition software.� Occasional wrong word or��sound alike� substitutions may have occurred due to the inherent limitations of voice recognition software.
Discharge Plan
Departure
Patient Disposition: Admit
Date of Disposition: 01/01/25
Time of Disposition: 04:54
Presentation/result/management discussed w/ accepting MD/DO: Hospitalist
Patient with high blood pressure during this ER visit?: No
Discharge Problem:
Acute anterior epistaxis
Instructions: Nosebleeds (DC)
Prescriptions:
No Action
meloxicam 15 mg Tablet
15 mg PO DAILY
clonazepam 0.5 mg Tablet
0.5 mg PO HS
sertraline 100 mg Tablet
100 mg PO DAILY
ascorbic acid (vitamin C) [Vitamin C] 500 mg Tablet
500 mg PO DAILY
tamsulosin 0.4 mg Capsule
0.8 mg PO HS
oxybutynin chloride 5 mg Tablet Extended Release 24hr
5 mg PO DAILY
sennosides [senna] 8.6 mg Tablet
17.2 mg PO BID
acetaminophen 325 mg Tablet
650 mg PO Q6H PRN (Reason: fever/mild pain)
Theragen Tablet
1 tab PO DAILY
levofloxacin [Levaquin] 250 mg Tablet
250 mg PO DAILY
ferrous sulfate 325 mg (65 mg iron) Tablet
325 mg PO Q48H
nystatin 100,000 unit/gram Cream
1 applic TOPICAL BID
Rx Instructions:
apply to sacrum
clotrimazole-betamethasone 1-0.05 % Cream
1 applic TOPICAL DAILY
Rx Instructions:
apply to tip of penis, hold from 12/22/24 to 01/05/25
aspirin 81 mg Tablet,Chewable
81 mg PO BID
ketoconazole 2 % Cream
1 applic TOPICAL BID
Rx Instructions:
apply to penis
vitamin E (dl, acetate) 45 mg (100 unit) Capsule
45 mg PO DAILY
calcium carbonate-vitamin D3 [Oyster Shell + D3] 250 mg-3.125 mcg (125 unit) Tablet
1 tab PO DAILY
Visbiome 112.5 billion cell Capsule
1 cap PO BID
cholecalciferol (vitamin D3) 125 mcg (5,000 unit) Tablet
125 mcg PO DAILY
Referrals:
UNKNOWN - PT DOES,NOT KNOW [Family Provider] -
Activity Restrictions/Additional Instructions:
Please see ENT in the next 2 to 3 days for follow-up and reevaluation and packing removal. Return immediately for intractable bleeding, coughing up blood, worsening symptoms or any other concerns.
Interventions
Interventions:
*Risk Screen - Suicide Last Done: 01/01/25 02:45
*General Assessment Last Done: 01/01/25 02:45
*Neglect/Abuse Screening Last Done: 01/01/25 02:45
*ED- Fall Risk Assessment Last Done: 01/01/25 02:45
*ED COVID-19 Vaccine History Last Done: 01/01/25 02:45
*Nursing Disposition Last Done: 01/01/25 08:01
ED-EENT Assessment Last Done: 01/01/25 03:15
Discharge Date and Time
Print Language: HEBREW
[2025-01-01] MEDS: ZOFRAN ODT (ORALLY DISINTEGRATING) 4 MG PO (06:10)
--- NOTE | 2025-01-01 06:10 | EDRN ---
Patient was complaining of feeling nauseated, patient given meds and pulled up in bed, daughter reports that he feels warm, re-checked temp 98.8, patient resting comfortably other peterson.
--- NOTE | 2025-01-01 06:37 | EDRN ---
Patient asking for water, informed him we can try a few ice chips
--- NOTE | 2025-01-01 09:30 | EDRN ---
Spoke with [facility] nurse, patient is unable to go to back due to frequent falls, will need placement in skilled care. SW consult in place.
--- NOTE | 2025-01-01 09:53 | CM ---
CM spoke with patient's daughter who is in agreement with placement . CM sent referrals to
[facility] [place] [facility] [place]
[facility]
Jj from [facility] is reviewing clinical.
[2025-01-01] MEDS: NSS 1000 IV (10:46)
[2025-01-01 10:58] LABS: Hematocrit 33.6 % (39.0-52.0); Hemoglobin 11.7 g/dL (13.0-18.0); Mean Corp Hgb Conc. 34.8 g/dL (33.0-37.0); Mean Corpuscular Hgb 27.5 pg (27.0-31.0); Mean Corpuscular Volume 78.9 fL (80.0-94.0); Mean Platelet Volume 9.9 fL (7.4-10.4); Platelet Count 251 10^3/uL (130-400); Red Blood Cell Count 4.26 10^6/uL (4.70-6.10); Red Cell Dist. Width 15.2 % (11.5-14.5); White Blood Cell Count 28.6 10^3/uL (4.8-10.8)
[2025-01-01 11:02] LABS: ALT (SGPT) 13 U/L (0-50); AST (SGOT) 16 U/L (17-59); Albumin 3.4 g/dl (3.5-5.0); Alkaline Phosphatase 60 U/L (38-126); Blood Urea Nitrogen 35 mg/dl (9-20); Calcium 9.4 mg/dl (8.4-10.2); Carbon Dioxide 19 mmol/L (22-30); Chloride 108 mmol/L (98-107); Estimated Creatinine Clearance 40 ml/min; Glucose 149 mg/dl (70-99); Potassium 4.9 mmol/L (3.5-5.1); Sodium 136 mmol/L (135-145); Total Bilirubin 1.2 mg/dl (0.2-1.3); Total Protein 6.1 g/dl (6.3-8.2); eGFR 58.17
--- NOTE | 2025-01-01 11:02 | EDRN ---
Pt was seen by PT, was helped out of bed when he started feeling dizzy, nauseated, and then vomited copious amounts of dark blood. Pt cleaned and helped into bed, VS obtained, noted with tachycardia. MD at bedside for eval. Labs sent, IV placed.
[2025-01-01 11:15] LABS: % Basophils 0.2 % (0-2); % Immature Granulocytes 0.9 % (0-0.5); % Lymphocytes 4.8 % (20.5-51.1); % Monocytes 7.9 % (1.7-9.3); % Neutrophils 86.2 % (42.2-75.2); Absolute Basophils 0.1 10^3/uL (0-0.2); Absolute Immature Granulocytes 0.3 10^3/uL (0-0.05); Absolute Lymphocytes 1.4 10^3/uL (1.2-3.4); Absolute Monocytes 2.3 10^3/uL (0.1-0.6); Absolute Neutrophils 24.7 10^3/uL (1.4-6.5); Nucleated Red Blood Cells % 0 % (-)
[2025-01-01] MEDS: PROTONIX IV 80 MG IV (11:50)
[2025-01-01] MEDS: NSS (PRESERVATIVE FREE) 20 ML IV (11:50)
[2025-01-01] MEDS: PROTONIX 100 IV (11:51)
[2025-01-01 11:54] LABS: Lactic Acid 2.5 mmol/L (0.7-2.0)
--- NOTE | 2025-01-01 12:37 | HPS.HSE ---
Family Physician
-
Family Physician: NOT KNOW UNKNOWN - PT DOES
Chief Complaint
-
epistaxis followed by vomiting blood
History of Present Illness
Mr. Ana Dubois is a 89 yo man with hx essential HTN, depression, recent fall where struck face presented to ER 12/30 diagnosed with mildly displaced nasal bone fractures presents to the ER with epistaxis. He was treated for nose bleed with a
Rapid Rhino. During PT evaluation patient became ill appears with significant amount of vomiting coffee ground emesis.
Currently patient denies significant complaints. He has tamponade in place. No recent fevers/chills. No chest pain or shortness of breath. Denies black or bloody stools.
[facility] at [facility]. He has some mild dementia.
Medical History
Past Medical History
Past Medical History: Reports HTN and Other (dementia, HFpEF )
Past Surgical History: Reports Orthopedic and Other
Social History
Tobacco: Non-smoker
Alcohol: None
Family History
Family History: Not pertinent
Allergies / Home Medications
Allergies reflects when Allergies were last updated in [facility].
Home Medications with original date entered in [facility]
Allergy/Medication List:
Allergies
Allergy/AdvReac Type Severity Reaction Status Date / Time
NKA - No Known Allergies Allergy Unknown Uncoded 01/01/25 02:56
Home Medications
ascorbic acid (vitamin C) 500 mg tablet (Vitamin C) 500 mg PO DAILY 06/08/24
clonazepam 0.5 mg tablet 0.5 mg PO HS 06/08/24
meloxicam 15 mg tablet 15 mg PO DAILY 06/08/24
oxybutynin chloride 5 mg tablet,extended release 24 hr 5 mg PO DAILY 06/08/24
sertraline 100 mg tablet 100 mg PO DAILY 06/08/24
tamsulosin 0.4 mg capsule 0.8 mg PO HS 06/08/24
Lactobac no.2-Bifidobac no.1-S. thermo 112.5 billion cell capsule (Visbiome) 1 cap PO BID 01/01/25
acetaminophen 325 mg tablet 650 mg PO Q6H PRN fever/mild pain 01/01/25
aspirin 81 mg chewable tablet 81 mg PO BID 01/01/25
calcium 250 mg (as carbonate)-vitamin D3 3.125 mcg (125 unit) tablet (Oyster Shell + D3) 1 tab PO DAILY 01/01/25
cholecalciferol (vitamin D3) 125 mcg (5,000 unit) tablet 125 mcg PO DAILY 01/01/25
clotrimazole-betamethasone 1 %-0.05 % topical cream 1 applic topical DAILY 01/01/25
ferrous sulfate 325 mg (65 mg iron) tablet 325 mg PO Q48H 01/01/25
ketoconazole 2 % topical cream 1 applic topical BID 01/01/25
levofloxacin 250 mg tablet 250 mg PO DAILY 01/01/25
nystatin 100,000 unit/gram topical cream 1 applic topical BID 01/01/25
sennosides 8.6 mg tablet (senna) 17.2 mg PO BID 01/01/25
therapeutic multivitamin 1 tab PO DAILY 01/01/25
vitamin E (dl, acetate) 45 mg (100 unit) capsule 45 mg PO DAILY 01/01/25
Review of Systems
-
A 12 point ROS was completed and negative except as noted: Yes
Physical Exam
Vital Signs
Vital Signs
Temp Pulse Resp BP Pulse Ox
97.6 F 123 28 104/57 100
01/01/25 11:06 01/01/25 12:00 01/01/25 10:45 01/01/25 12:00 01/01/25 12:02
Physical Exam
General: No Apparent Distress and Conversant
HEENT: Other (left nostril with packing in place )
Respiratory: Clear; No Wheezes
Cardiac: S1/S2 and Regular Rhythm
GI: Soft and Non Tender
Musculoskeletal: No Edema
Skin: Warm and Dry; No Rash
Neuro: AO x 3
Psych: Calm and Apparent Dementia
Laboratory Results
-
01/01/25 10:37
01/01/25 10:37
Laboratory Results
Lactic Acid 2.5 mmol/L (0.7-2.0) H 01/01/25 11:17
Total Bilirubin 1.2 mg/dl (0.2-1.3) 01/01/25 10:37
AST 16 U/L (17-59) L 01/01/25 10:37
ALT 13 U/L (0-50) 01/01/25 10:37
Alkaline Phosphatase 60 U/L (38-126) 01/01/25 10:37
Data Reviewed
-
Diagnostic Radiology: Report Reviewed by me
Lab Data: Labs Reviewed by me
Impression/Plan
-
Mr. Ana Dubois is a 89 yo man with hx essential HTN, depression, recent fall where struck face presented to ER 12/30 diagnosed with mildly displaced nasal bone fractures presents to the ER with epistaxis. He was treated for nose bleed with a
Rapid Rhino. During PT evaluation patient became ill appearing with significant amount of vomiting coffee ground emesis.
Triage VS: T 97.7, P 100, RR 22, BP 104/57, SpO2 93%
LABS: WBC 28.6, Hg 11.7, PLT 251, Na 136, K+ 4.9, Cl 108, CO2 19, BUN 35, Cr 1.2, Glucose 149, Lactate 2.5, T. Bili 1.2, AST 16, ALT 13, Alk Phos [address]
CERVICAL SPINE CT
facial bones CT
IMPRESSION:
No acute intracranial abnormality.
No acute abnormalities within the cervical spine.
Mildly displaced nasal bone fractures.
Given IVF, Zofran
Severe Epistaxis
Coffee Ground Emesis
-s/p rapid rhino earlier in ER visit but patient likely swallowed a lot of blood then had coffee ground emesis
-will admit to telemetry
-trend Hg, blood consent signed
-given history this is explained by epistaxis; will give IV protonix short term
-clear liquid diet
-Augmentin with nasal packing
-ENT consult
-hold MARINE EQUIPMENT TEST ENGINEER aspirin, Meloxicam
New diagnosis atrial fibrillation with RVR
-HR 110's, SBP 100's
-monitor on telemetry
-TTE, TSH
-cardiology consult
-no blood thinners in setting of bleed
-Can monitor need for further rate control post fluids
Dementia
-per daughter, slightly more confused in setting of ER visit, bleed
-monitor
Balanitis - per daughter patient is on treatment with Levaquin and ketonconazole
-will hold Levaquin while giving Augmentin
BPH -MARINE EQUIPMENT TEST ENGINEER Flomax
Depression - MARINE EQUIPMENT TEST ENGINEER Zoloft, Clonazepam
DNR - this was discussed with patient's daughter over the phone
DVT PPx - SCD
76 minutes spent on patient care
[2025-01-01] MEDS: AUGMENTIN 875 MG/125 MG 1 TABLET PO ×2 (13:44→20:55)
[2025-01-01 15:14] LABS: TSH Reflex To Free T4 0.55 uIU/ml (0.47-4.68)
[2025-01-01] MEDS: NSS 250 IV (16:01)
[2025-01-01 17:38] LABS: Hemoglobin 10.4 g/dL (13.0-18.0)
[2025-01-01 17:51] LABS: Lactic Acid 1.5 mmol/L (0.7-2.0)
[2025-01-01] MEDS: PROTONIX IV 40 MG IV (20:51)
[2025-01-01] MEDS: NSS (PRESERVATIVE FREE) 10 ML IV (20:55)
[2025-01-01] MEDS: FLOMAX 0.8 MG PO (20:55)
[2025-01-01] MEDS: SENOKOT 17.2 MG PO (20:55)
[2025-01-01] MEDS: VISBIOME 1 CAP PO (20:55)
[2025-01-01] MEDS: KLONOPIN 0.5 MG PO (20:56)
[2025-01-01] MEDS: MYCOSTATIN CREAM 1 APPLIC TOPICAL (20:56)
[2025-01-01] MEDS: NIZORAL 2% CREAM 1 APPLIC TOPICAL (20:56)
[2025-01-02 03:11] VITALS: BP 115/59
[2025-01-02 03:15] LABS: Hemoglobin 9.3 g/dL (13.0-18.0)
[2025-01-02 06:00] VITALS: BMI 29.3
--- NOTE | 2025-01-02 07:30 | CON.CAR ---
Addendum entered and electronically signed by Cuauhtemoc Trujillo MD 01/02/25 12:49:
I saw and examined the patient.
The MAIL ORDER BILLER or PA's note was reviewed and I agree with the note.
Comment: General: Well developed, well nourished in NAD.
Neck: Supple, no JVD, HJR, carotids +2 B/L, no bruits bilaterally.
Heart: Non displaced PMI, RRR, no murmurs, No S3, S4, no rubs.
Lungs: Clear to auscultation bilaterally, no wheeze, rhonchi, rubs bilaterally,
normal expiratory phase.
Skin: Ecchymoses over face
Abdomen: Normal bowel sounds, soft, non-tender, non-distended.
Extremities: No clubbing, cyanosis or edema bilaterally.
Neuro: Grossly nonfocal, awake, alert and oriented x3.
Ana has a history of hypertension and dementia. He presented with epistaxis followed by hematemesis. He is found to be in A-fib on EKG which spontaneously converted to sinus rhythm. Of note he had significant epistaxis with evidence of nasal
fracture and now has nasal packing. He denies chest pain, short breath, or palpitations.
Will add Toprol as he may remain somewhat tachycardic in sinus rhythm. Echocardiogram with normal LV function. Await ear nose and throat evaluation before deciding about anticoagulation. He is at high risk of stroke but may need to balance the
risk of bleeding/dementia with stroke prevention.
Original Note:
Consultation
Consultation Request
Date/Time Consultation Requested: 01/01/25 at 1517
Date/Time Consultation Performed: 01/02/25 at 0730
Requesting Provider: Dr. Kimball
Performing Provider: Dr. Trujillo
Reason for Consultation: New Afib with RVR
Medical History
-
History of Present Illness:
Patient came to ER yesterday with epistaxis and was admitted after experiencing hematemesis and cardiology is now consulted due to incidental finding of A-fib as well. Patient lives in independent living at [facility] and had a trip and fall on
12/30/2024 resulting in an ER visit where they identified a laceration to the bridge of his nose and CT of the head showed septal hematoma, but no evidence of intracranial injury the patient was returned back to his independent living apartment at
[facility]. Patient return to ER on 01/01/2025 with epistaxis and was reported to have an episode of hematemesis. Reexamination showed evidence of nasal fracture with evidence of mucosal break. Inflatable nasal packing was placed to the left nostril
and patient was dispositioned back to [facility], but the facility refused to accept him and stated that he needed a higher level of care. Patient was evaluated by PT and an attempt to place in a rehab and he started to feel unwell and then had large
amount of coffee-ground emesis. Patient was placed on care management associate and noted to be tachycardic and hypotensive and this was apparently the first evidence of A-fib, but there are no ECGs from 12/30/2024 or earlier in the visit on 01/01/2025 to
confirm this. Patient was admitted and cardiology consulted. We had last seen the patient on 03/31/2024 for preop exam prior to a RADHA and at that time he was NSR. No h/o CAD. Patient denies palpitations.
PMH:
HTN
Dementia
Past Medical History
Past Medical History: Other (in HPI)
Past Surgical History: Cholecystectomy and Orthopedic (RADHA)
Social History
Tobacco: Former Smoker
Alcohol: None
Drug: None
Personal:
Living: Alone (independent living at [facility])
Family History
Family History: Cancer
Allergies / Home Medications
Allergy/AdvReac Type Severity Reaction Status Date / Time
NKA - No Known Allergies Allergy Unknown Uncoded 01/01/25 02:56
�Medication �Instructions �Recorded �Confirmed �Type
ascorbic acid (vitamin C) 500 mg 500 mg PO DAILY 06/08/24 01/01/25 History
tablet (Vitamin C)
clonazepam 0.5 mg tablet 0.5 mg PO HS 06/08/24 01/01/25 History
meloxicam 15 mg tablet 15 mg PO DAILY 06/08/24 01/01/25 History
oxybutynin chloride 5 mg 5 mg PO DAILY 06/08/24 01/01/25 History
tablet,extended release 24 hr
sertraline 100 mg tablet 100 mg PO DAILY 06/08/24 01/01/25 History
tamsulosin 0.4 mg capsule 0.8 mg PO HS 06/08/24 01/01/25 History
Lactobac no.2-Bifidobac no.1-S. 1 cap PO BID 01/01/25 01/01/25 History
thermo 112.5 billion cell capsule
(Visbiome)
acetaminophen 325 mg tablet 650 mg PO Q6H PRN fever/mild pain 01/01/25 01/01/25 History
aspirin 81 mg chewable tablet 81 mg PO BID 01/01/25 01/01/25 History
calcium 250 mg (as 1 tab PO DAILY 01/01/25 01/01/25 History
carbonate)-vitamin D3 3.125 mcg
(125 unit) tablet (Oyster Shell +
D3)
cholecalciferol (vitamin D3) 125 125 mcg PO DAILY 01/01/25 01/01/25 History
mcg (5,000 unit) tablet
clotrimazole-betamethasone 1 1 applic topical DAILY 01/01/25 01/01/25 History
%-0.05 % topical cream
ferrous sulfate 325 mg (65 mg 325 mg PO Q48H 01/01/25 01/01/25 History
iron) tablet
ketoconazole 2 % topical cream 1 applic topical BID 01/01/25 01/01/25 History
levofloxacin 250 mg tablet 250 mg PO DAILY 01/01/25 01/01/25 History
nystatin 100,000 unit/gram topical 1 applic topical BID 01/01/25 01/01/25 History
cream
sennosides 8.6 mg tablet (senna) 17.2 mg PO BID 01/01/25 01/01/25 History
therapeutic multivitamin 1 tab PO DAILY 01/01/25 01/01/25 History
vitamin E (dl, acetate) 45 mg (100 45 mg PO DAILY 01/01/25 01/01/25 History
unit) capsule
Review of Systems
-
History Source: Patient and Family
All other systems: Negative unless noted
Physical Exam
Vital Signs
Temp Pulse Resp BP Pulse Ox
97.4 F 111 18 115/59 96
01/02/25 03:11 01/02/25 03:11 01/02/25 03:11 01/02/25 03:11 01/02/25 03:11
GEN: NAD. AAO to person, place and situation
HEENT: EOMI, facial ecchymoses, left nostril packed
LUNGS: RA. Clear anterolaterally without wheeze
CV: Afib RVR on tele. Reg and rapid, S1/S2, no murmur
ABD: soft, BS+, NT, ND
EXT: No clubbing, cyanosis, lesions or edema B/L
NEURO: Gross non-focal
SKIN: Warm, dry and pink. No rash
Lab Results
CBC 01/01/2025: Hgb 11.7, WBC 28.6, platelet count 251,000, Hgb trended down to 10.4 on 01/01/2025 at 1725 and is down to 9.3 on 01/02/2025 at 0212
CMP 01/01/2025: Sodium 136, potassium 4.9, BUN 35, creatinine 1.2, AST 16, ALT 13, TSH 0.55 normal
Impression / Plan
-
PCP: Dr. Víctor Garvin
Cardiology: Dr. High
Impression:
Admitted with epistaxis and hematemesis 01/01/2025
Recent ER visit for fall and facial trauma 12/30/2024
Epistaxis due to trauma resulting in nasal fracture and mucosal break
Hematemesis, likely due to epistaxis
Newly diagnosed A-fib of unclear duration
HTN
Dementia
Echo 2018: EF 75%, stage I diastolic dysfunction, mildly dilated LA, noncoronary cusp mildly to moderately calcified with mildly restricted movement, mild TR, PAP 30 to 35 mmHg
Echo 01/02/2025: Report pending
Plan:
-Patient came to ER yesterday with epistaxis and was admitted after experiencing hematemesis and cardiology is now consulted due to incidental finding of A-fib as well. Patient lives in independent living at [facility] and had a trip and fall on
12/30/2024 resulting in an ER visit where they identified a laceration to the bridge of his nose and CT of the head showed septal hematoma, but no evidence of intracranial injury the patient was returned back to his independent living apartment at
[facility]. Patient return to ER on 01/01/2025 with epistaxis and was reported to have an episode of hematemesis. Reexamination showed evidence of nasal fracture with evidence of mucosal break. Inflatable nasal packing was placed to the left nostril
and patient was dispositioned back to [facility], but the facility refused to accept him and stated that he needed a higher level of care. Patient was evaluated by PT and an attempt to place in a rehab and he started to feel unwell and then had large
amount of coffee-ground emesis. Patient was placed on care management associate and noted to be tachycardic and hypotensive and this was apparently the first evidence of A-fib, but there are no ECGs from 12/30/2024 or earlier in the visit on 01/01/2025 to
confirm this. Patient was admitted and cardiology consulted. We had last seen the patient on 03/31/2024 for preop exam prior to a RADHA and at that time he was NSR. No h/o CAD. Patient denies palpitations.
-ECG reviewed by me shows A-fib with RVR, telemetry also reviewed by me this morning looks like A-fib with RVR
-Called and talked with the patient's daughter, Thuy, by phone for 12 minutes on 01/02/2025 AM. We reviewed admission thus far and the new diagnosis of A-fib. Interestingly, the patient's other daughter and a son also have A-fib, but this is a
new diagnosis for patient.
-Remains in A-fib with RVR. BP is acceptable, so will add Toprol XL 25 mg BID starting now
-Will not add OAC until we have a plan from ENT. Patient with profound epistaxis followed by hematemesis and Hgb is trending down. There is no history of embolic event.
-Patient is not a candidate for rhythm control until we know he can take 4 weeks of uninterrupted OAC, reviewed this with his daughter as well on 01/02/2025. Will continue to focus on rate control as noted above.
-TSH was normal at 0.55
-Echo performed this morning and result is pending
-Eventual evaluation for [facility]
--- NOTE | 2025-01-02 08:38 | CON.MD ---
Consultation - Medical
-
Chief complaint: Epistaxis
History of present illness: This patient is an 89-year-old gentleman who fell at home on 12/30/2024 suffering a nasal fracture. He was discharged to home and returned yesterday with epistaxis from the left side which was controlled with a rapid
Rhino on the left side. He was going to be discharged home and then had nausea and vomited a large amount of coffee ground emesis. The patient is stable currently. There is no evidence of active bleeding. He does not have a history of
significant epistaxis. He fell last year and because clavicle.
Past medical history:
Allergies: No known drug allergies
Home medications: Acetaminophen 650 mg p.o. every 6 hours as needed, ascorbic acid 500 mg p.o. daily, aspirin 81 mg p.o. daily, calcium carbonate vitamin D3 1 tablet p.o. daily, cholecalciferol 125 mcg p.o. daily, clonazepam 0.5 mg p.o. nightly,
clotrimazole/betamethasone 1 application topically daily, ferrous sulfate 325 mg p.o. every 48 hours, ketoconazole 1 application topically twice daily, lacticbac 2 Bifido 1S therm 1 Capsule p.o. twice daily, levothyroxine 250 mg p.o. daily,
meloxicam 15 mg p.o. daily, nystatin 1 application twice daily, oxybutynin chloride 5 mg p.o. daily, sennosides 17.2 p.o. twice daily, sertraline 100 mg p.o. daily, tamsulosin 0.4 mg p.o. daily
Chronic illnesses: Acute anterior epistaxis, acute on chronic respiratory failure, chronic diastolic heart failure, traction bronchiectasis, pulmonary fibrosis, hypertension, acute diastolic heart failure, interstitial lung disease, pneumonia
Hospitalizations: The patient is currently hospitalized for epistaxis after nasal fracture
Family history: Asked and is noncontributory for this problem
Review of systems: Positive for epistaxis now controlled, packing in left nose, congested nasally, negative for chest pain and respiratory distress
Physical examination:
Head: Periorbital bruising present
Eyes: Periorbital bruising present bilaterally
Ears: Normal to examination
Nose: Packing in left nose without active bleeding, abrasion/laceration over dorsum of nose
Oral cavity/oropharynx: Dry mucosa: No evidence of active blood or postnasal drip
Cranial nerves: 2 through 12 are intact
Thyroid: Normal to examination
Salivary glands: Normal to examination
Voice normal tone and volume
Impression/plan: This 89-year-old gentleman experienced severe epistaxis which was controlled with a rapid Rhino in the emergency room yesterday. This occurred 2 days after nasal fracture. The patient is doing well at this point and his nosebleed
is controlled. The packing should stay 3 days and we can see him back in the office on Thursday to remove the packing. He can call the office to make an appointment. He is stable without signs of bleeding currently.
[2025-01-02 08:44] VITALS: BP 122/69
[2025-01-02] MEDS: PROTONIX IV 40 MG IV ×2 (08:58→20:49)
[2025-01-02] MEDS: ZOLOFT 100 MG PO (08:59)
[2025-01-02] MEDS: SENOKOT 17.2 MG PO ×2 (08:59→20:50)
[2025-01-02] MEDS: NSS (PRESERVATIVE FREE) 10 ML IV ×2 (08:59→20:49)
[2025-01-02] MEDS: VISBIOME 1 CAP PO ×2 (08:59→20:50)
[2025-01-02] MEDS: DITROPAN 5 MG PO (08:59)
[2025-01-02] MEDS: AUGMENTIN 875 MG/125 MG 1 TABLET PO ×2 (09:00→20:50)
[2025-01-02] MEDS: NIZORAL 2% CREAM 1 APPLIC TOPICAL ×2 (09:01→21:05)
[2025-01-02] MEDS: MYCOSTATIN CREAM 1 APPLIC TOPICAL ×2 (09:02→21:05)
[2025-01-02] MEDS: TOPROL XL 25 MG PO ×2 (10:56→20:58)
[2025-01-02 11:00] VITALS: BP 105/69
--- NOTE | 2025-01-02 11:17 | W.PN.HOSP.TC ---
Today's Communication/Plan
-
monitor HR's on Metoprolol
ENT follow up on Thu for packing removal
Augmentin with packing in place
holding ACOUSTIC WARFARE ANALYST aspirin
appreciate Cardiology and ENT
Assessment / Plan
Assessment / Plan
Mr. Ana Dubois is a 89 yo man with hx essential HTN, depression, recent fall where struck face presented to ER 12/30 diagnosed with mildly displaced nasal bone fractures presents to the ER with epistaxis. He was treated for nose bleed with a
Rapid Rhino. During PT evaluation patient became ill appearing with significant amount of vomiting coffee ground emesis in setting of swallowed blood. He is also found to have new afib with RVR.
HEAD CT 12/[address]
facial bones CT
IMPRESSION:
No acute intracranial abnormality.
No acute abnormalities within the cervical spine.
Mildly displaced nasal bone fractures.
TTE 01/02/25
TTE
CONCLUSIONS
Normal left ventricular size, wall thickness and systolic function. No regional
wall motion abnormalities are seen. LV ejection fraction is 60-65% by visual
assessment. Normal diastolic function.
The aortic root is mildly dilated-3.8 cm at sinus of Valsalva. Normal ascending
aorta.
Since echo February 2018, there is no significant change.
Severe Epistaxis
Coffee Ground Emesis
-s/p rapid rhino earlier in ER visit but patient likely swallowed a lot of blood then had coffee ground emesis
-monitor on telemetry
-trend Hg, blood consent signed - awaiting AM labs
-given history this is explained by epistaxis; will give IV protonix short term
-advance diet today
-Augmentin with nasal packing x 3 days; per ENT, patient to be seen in office on Thursday and packing can be removed
-ENT consult appreciated
-continue Augmentin with packing
-hold ACOUSTIC WARFARE ANALYST aspirin, Meloxicam. Per daughter, aspirin is for prophylaxis (no hx CT or CVA). Patient should follow up with ENT to see when safe to resume.
New diagnosis atrial fibrillation with RVR
-HR 110's, SBP 100's
-monitor on telemetry
-TTE results abpve
-TSH WNL
-cardiology consult appreciated
-no blood thinners in setting of bleed
-Metop 25 BID initiated this AM
-possible DC tomorrow after monitoring HR on Metoprolol
Dementia
-per daughter, slightly more confused in setting of ER visit, bleed
-monitor
-PT ordered
Balanitis - per daughter patient is on treatment with Levaquin and ketonconazole
-will hold Levaquin while giving Augmentin
BPH -ACOUSTIC WARFARE ANALYST Flomax
Depression - ACOUSTIC WARFARE ANALYST Zoloft, Clonazepam
DNR - this was discussed with patient's daughter over the phone
DVT PPx - SCD
51 minutes spent on patient care
Anticipated Discharge: 24 - 48 hours
Subjective/Interval History
-
Date of Service: January 02, 2025
feeling well
no pain
Objective Data
-
Labs:
Laboratory Results
01/02/25 01/02/25 01/02/25
02:12 11:11 11:11
WBC Pending
Hgb 9.3 L Pending Pending
Hct Pending
Plt Count Pending
Sodium Pending
Potassium Pending
Chloride Pending
Carbon Dioxide Pending
BUN Pending
Creatinine Pending
Glucose Pending
Calcium Pending
Vital Signs:
Vital Signs
Temp Pulse Resp BP Pulse Ox
97.5 F 98 20 105/69 94
01/02/25 11:00 01/02/25 11:00 01/02/25 11:00 01/02/25 11:00 01/02/25 11:00
I&O
0301/02/25 01/03/25
06:59 06:59 06:59
Intake Total 327 / 327
Output Total 700 / 700
Balance -373 / -373
Review of Systems
-
History Source: Patient
All other systems: Reviewed and negative
Physical Exam
-
General: No Apparent Distress
HEENT: Other (bilateral periorbital and nasal bruising; packing in place left nostril )
Respiratory: Clear to Auscultation; Negative Wheezes
Cardiac: Irregular Rhythm
GI: Soft and Nontender
Musculoskeletal: No Edema
Skin: Warm and Dry; Negative Rash
Neuro: AO x 3
Psych: Calm
Data Reviewed
-
Diagnostic Radiology: Report Reviewed by me
Labs: Labs Reviewed by me
[2025-01-02 11:21] LABS: Hemoglobin 9.1 g/dL (13.0-18.0)
[2025-01-02 11:26] LABS: Hematocrit 27.2 % (39.0-52.0); Hemoglobin 9.3 g/dL (13.0-18.0); Mean Corp Hgb Conc. 34.2 g/dL (33.0-37.0); Mean Corpuscular Hgb 27.6 pg (27.0-31.0); Mean Corpuscular Volume 80.7 fL (80.0-94.0); Mean Platelet Volume 9.7 fL (7.4-10.4); Platelet Count 188 10^3/uL (130-400); Red Blood Cell Count 3.37 10^6/uL (4.70-6.10); Red Cell Dist. Width 15.4 % (11.5-14.5); White Blood Cell Count 12.9 10^3/uL (4.8-10.8)
[2025-01-02 13:38] LABS: Blood Urea Nitrogen 33 mg/dl (9-20); Calcium 8.6 mg/dl (8.4-10.2); Carbon Dioxide 22 mmol/L (22-30); Chloride 111 mmol/L (98-107); Estimated Creatinine Clearance 43 ml/min; Glucose 152 mg/dl (70-99); Potassium 3.9 mmol/L (3.5-5.1); Sodium 141 mmol/L (135-145); eGFR > 60.00
--- NOTE | 2025-01-02 14:28 | CM ---
copy manager reviewed patient's chart and met patient and daughter is agreeable to [facility], and [facility], referrals sent.
Plan; Skilled placement.
[2025-01-02 15:00] VITALS: BP 104/58
[2025-01-02 19:45] VITALS: BP 124/69
[2025-01-02] MEDS: KLONOPIN 0.5 MG PO (20:49)
[2025-01-02] MEDS: FLOMAX 0.8 MG PO (20:50)
[2025-01-02 23:30] VITALS: BP 130/72
[2025-01-03] VITALS (7 sets, daily range): BP systolic 90–130; BP diastolic 52–75; O2SAT 94; BMI 29.3
--- NOTE | 2025-01-03 02:20 | PTCARENOTE ---
Pt found in room without packing in left nose. When asked, about packing, pt said it was 'bothering him,' so he pulled it out. Pt not with active bleeding, just dried blood around the nostril. Provider notified. Will continue to monitor for
bleeding
[2025-01-03] MEDS: NSS (PRESERVATIVE FREE) 10 ML IV ×2 (07:46→19:28)
[2025-01-03] MEDS: PROTONIX IV 40 MG IV ×2 (07:46→19:28)
[2025-01-03] MEDS: SENOKOT PO (07:47)
[2025-01-03] MEDS: AUGMENTIN 875 MG/125 MG 1 TABLET PO ×2 (07:47→19:27)
[2025-01-03] MEDS: VISBIOME 1 CAP PO ×2 (07:47→19:28)
[2025-01-03] MEDS: DITROPAN 5 MG PO (07:49)
[2025-01-03] MEDS: ZOLOFT 100 MG PO (07:49)
[2025-01-03] MEDS: TOPROL XL PO (07:49)
[2025-01-03] MEDS: MYCOSTATIN CREAM 1 APPLIC TOPICAL ×2 (07:50→19:33)
[2025-01-03] MEDS: NIZORAL 2% CREAM 1 APPLIC TOPICAL ×2 (07:50→19:33)
[2025-01-03 08:01] LABS: Hematocrit 24.7 % (39.0-52.0); Hemoglobin 8.4 g/dL (13.0-18.0); Mean Corpuscular Hgb 27.6 pg (27.0-31.0); Mean Corpuscular Volume 81.3 fL (80.0-94.0); Platelet Count 192 10^3/uL (130-400); Red Blood Cell Count 3.04 10^6/uL (4.70-6.10); Red Cell Dist. Width 15.2 % (11.5-14.5); White Blood Cell Count 8.6 10^3/uL (4.8-10.8)
--- NOTE | 2025-01-03 10:01 | W.PN.HOSP.TC ---
Today's Communication/Plan
-
see bold
Assessment / Plan
Assessment / Plan
Mr. Ana Dubois is a 89 yo man with hx essential HTN, depression, recent fall where struck face presented to ER 12/30 diagnosed with mildly displaced nasal bone fractures presents to the ER with epistaxis. He was treated for nose bleed with a
Rapid Rhino. During PT evaluation patient became ill appearing with significant amount of vomiting coffee ground emesis in setting of swallowed blood. He is also found to have new afib with RVR.
Severe Epistaxis
Nasal bone fractures
Coffee Ground Emesis
-S/p rapid rhino earlier in ER visit but patient likely swallowed a lot of blood then had coffee ground emesis
-Appreciate ENT input, okay to resume anticoagulation 01/05
-ENT rec augmentin with nasal packing x 3 days; packing came out 01/05 early AM
-Hold LINK WIRE FABRIC MACHINE TENDER aspirin, Meloxicam. Per daughter, aspirin is for prophylaxis (no hx [place] or CVA)
New diagnosis atrial fibrillation with RVR
-Echo reviewed, TSH normal
-Appreciate cardiology input, recommend Toprol XL 25 mg daily
-ENT says okay for anticoagulation on 01/05
Acute blood loss anemia
-From epistaxis
-Hemoglobin 8.4 today, was 11.7 upon admission
-Trend, transfuse prn
Dementia
-per daughter, slightly more confused in setting of ER visit, bleed
-monitor
-PT ordered
Balanitis - per daughter patient is on treatment with Levaquin and ketonconazole
-will hold Levaquin while giving Augmentin
BPH -LINK WIRE FABRIC MACHINE TENDER Flomax
Depression - LINK WIRE FABRIC MACHINE TENDER Zoloft, Clonazepam
DVT prophylaxis�SCDs
DNR - this was discussed with patient's daughter over the phone
Updated daughter on phone 01/03
Total time spent to see the patient on the floor, examine the patient, review data and lab results, discuss treatment plan with patient, nursing staff around 51 minutes.
Physical Exam
General: No acute distress
HEENT: Normocephalic, periorbital ecchymosis noted
Nasal ecchymosis noted
No active bleeding
Respiratory: Clear to Auscultation bilaterally
Cardiac: Normal S1/S2, Regular Rate and Rhythm
GI: Soft, Nontender, Nondistended, Normal Bowel Sounds
Extremities: No Clubbing, Cyanosis, or Edema
Neuro: Pleasantly confused
Anticipated Discharge: 24 - 48 hours
Subjective/Interval History
-
Date of Service: January 03, 2025
Patient pulled out his nasal packing overnight. Epistaxis resolved. Denies chest pain, shortness of breath. No fever, no vomiting.
Objective Data
-
Labs:
Laboratory Results
01/03/25
07:14
WBC 8.6
Hgb 8.4 L
Hct 24.7 L
Plt Count 192
Vital Signs:
Vital Signs
Temp Pulse Resp BP Pulse Ox
98.2 F 88 16 95/64 97
01/03/25 07:00 01/03/25 07:00 01/03/25 07:00 01/03/25 07:00 01/03/25 08:00
I&O
01/02/25 01/03/25 01/04/25
06:59 06:59 06:59
Intake Total 327 / 327 930 / 930
Output Total 700 / 700
Balance -373 / -373 930 / 930
--- NOTE | 2025-01-03 13:57 | W.PN.CARDCBS ---
Addendum entered and electronically signed by Cuauhtemoc Trujillo MD 01/03/25 14:35:
I saw and examined the patient.
The INGOT CAR OPERATOR or PA's note was reviewed and I agree with the note.
Comment: General: Well developed, well nourished in NAD.
Neck: Supple, no JVD, HJR, carotids +2 B/L, no bruits bilaterally.
Heart: Non displaced PMI, RRR, no murmurs, No S3, S4, no rubs.
Lungs: Scattered rhonchi
Extremities: No clubbing, cyanosis or edema bilaterally.
Neuro: Grossly nonfocal, awake, alert and oriented x3.
Remains in sinus rhythm. Will decrease Toprol to 25 mg daily. Eliquis to be started on 01/05 per ENT. Will check on cost of Eliquis. d/w primary service and ENT
Original Note:
Today's Communication / Plan
-
Toprol XL dose lowered to 25 mg daily due to hypotension
Task to CM to check on cost of Eliquis, e-scribed to pharmacy
Impression / Plan
-
PCP: Dr. Víctor Garvin
Cardiology: Dr. High
Impression:
Admitted with epistaxis and hematemesis 01/01/2025
Recent ER visit for fall and facial trauma 12/30/2024
Epistaxis due to trauma resulting in nasal fracture and mucosal break
Hematemesis, likely due to epistaxis
Newly diagnosed A-fib of unclear duration
HTN
Dementia
Echo 2018: EF 75%, stage I diastolic dysfunction, mildly dilated LA, noncoronary cusp mildly to moderately calcified with mildly restricted movement, mild TR, PAP 30 to 35 mmHg
Echo 01/02/2025: EF 60 to 65%, normal diastolic function, aortic root mildly dilated at 3.8 cm at the sinus of Valsalva, normal ascending aorta, compared to echo 02/2018 there is no change
Plan:
-Overnight events noted, patient's left nostril packing became dislodged and was not replaced. No recurrent bleeding. Dr. Trujillo communicated with ENT and plan is to start OAC on .
-ECG reviewed by me 01/03/25 looks like SR with PACs. Afib on ECGs earlier this admission, Afib is a new diagnosis.
-New to Toprol XL 25 mg BID this admission. Patient noted to be hypotensive on VS reviewed by me 01/03/25. Will decreased to Toprol XL 25 mg daily, orders changed by me
-When I talked with patient's daughter, Thuy, on 01/02/2025 she did not feel that patient had any other contraindications to OAC and was agreeable to initiation once safe from an ENT standpoint.
-Will ask CM to check on cost of Eliquis 5 mg BID (age 89, Cre 1.1, wt 84 kg). I e-scribed to patient's pharmacy
-Patient is not a candidate for rhythm control until we know he can take 4 weeks of uninterrupted OAC, reviewed this with his daughter as well on 01/02/2025. Will continue to focus on rate control as noted above.
-TSH was normal at 0.55
-Eventual evaluation for BOSSMAN
HPI: Patient came to ER yesterday with epistaxis and was admitted after experiencing hematemesis and cardiology is now consulted due to incidental finding of A-fib as well. Patient lives in independent living at [facility] and had a trip and fall on
12/30/2024 resulting in an ER visit where they identified a laceration to the bridge of his nose and CT of the head showed septal hematoma, but no evidence of intracranial injury the patient was returned back to his independent living apartment at
[facility]. Patient return to ER on 01/01/2025 with epistaxis and was reported to have an episode of hematemesis. Reexamination showed evidence of nasal fracture with evidence of mucosal break. Inflatable nasal packing was placed to the left nostril
and patient was dispositioned back to [facility], but the facility refused to accept him and stated that he needed a higher level of care. Patient was evaluated by PT and an attempt to place in a rehab and he started to feel unwell and then had large
amount of coffee-ground emesis. Patient was placed on case monitor and noted to be tachycardic and hypotensive and this was apparently the first evidence of A-fib, but there are no ECGs from 12/30/2024 or earlier in the visit on 01/01/2025 to
confirm this. Patient was admitted and cardiology consulted. We had last seen the patient on 03/31/2024 for preop exam prior to a RADHA and at that time he was NSR. No h/o CAD. Patient denies palpitations.
Progress Note - Sneller Hand
Subjective
Date of Service: January 03, 2025
His nasal packing fell out last night, no pain, no bleeding
Objective
Labs:
01/03/25 07:14
01/02/25 11:11
Labs
Hgb 8.4 g/dL (13.0-18.0) L 01/03/25 07:14
Hct 24.7 % (39.0-52.0) L 01/03/25 07:14
Plt Count 192 10^3/uL (130-400) 01/03/25 07:14
Sodium 141 mmol/L (135-145) 01/02/25 11:11
Potassium 3.9 mmol/L (3.5-5.1) 01/02/25 11:11
BUN 33 mg/dl (9-20) H 01/02/25 11:11
Creatinine 1.1 mg/dL (0.7-1.3) 01/02/25 11:11
Glucose 152 mg/dl (70-99) H 01/02/25 11:11
Vital Signs and I&O:
Vital Signs
Temp Pulse Resp BP Pulse Ox
97.8 F 83 18 96/52 94
01/03/25 11:20 01/03/25 11:20 01/03/25 11:20 01/03/25 11:20 01/03/25 11:20
Vital Signs
Temp Pulse Resp BP Pulse Ox
97.8 F 83 18 96/52 94
01/03/25 11:20 01/03/25 11:20 01/03/25 11:20 01/03/25 11:20 01/03/25 11:20
Intake & Output
01/01/25 01/02/25 01/03/25 01/04/25
06:59 06:59 06:59 06:59
Intake Total 327 / 327 930 / 930
Output Total 700 / 700
Balance -373 / -373 930 / 930
Physical Exam
Physical Exam
GEN: NAD
HEENT: Facial ecchymoses
LUNGS: RA.
CV: SR with PACs on tele
EXT: No edema B/L
NEURO: Gross non-focal
SKIN: No rash
--- NOTE | 2025-01-03 15:52 | CM ---
Patient has been accepted at [facility] on morning, patient will need Auth,
[facility]
Dr Schroeder
[2025-01-03] MEDS: KLONOPIN 0.5 MG PO (19:28)
[2025-01-03] MEDS: FLOMAX 0.8 MG PO (19:28)
[2025-01-03] MEDS: SENOKOT 17.2 MG PO (19:28)
[2025-01-04 07:30] VITALS: BP 122/71
[2025-01-04] MEDS: NSS (PRESERVATIVE FREE) IV (08:15)
[2025-01-04] MEDS: PROTONIX IV IV (08:15)
[2025-01-04] MEDS: TOPROL XL 25 MG PO (08:19)
[2025-01-04] MEDS: VISBIOME 1 CAP PO ×2 (08:19→20:24)
[2025-01-04] MEDS: AUGMENTIN 875 MG/125 MG 1 TABLET PO ×2 (08:19→20:23)
[2025-01-04] MEDS: DITROPAN 5 MG PO (08:19)
[2025-01-04] MEDS: SENOKOT 17.2 MG PO ×2 (08:19→20:23)
[2025-01-04] MEDS: ZOLOFT 100 MG PO (08:19)
[2025-01-04] MEDS: PROTONIX 40 MG PO ×2 (08:20→20:24)
[2025-01-04] MEDS: MYCOSTATIN CREAM 1 APPLIC TOPICAL ×2 (08:22→20:24)
[2025-01-04] MEDS: NIZORAL 2% CREAM 1 APPLIC TOPICAL ×2 (08:23→20:24)
[2025-01-04 09:00] LABS: Hematocrit 24.7 % (39.0-52.0); Hemoglobin 8.5 g/dL (13.0-18.0); Mean Corp Hgb Conc. 34.4 g/dL (33.0-37.0); Mean Corpuscular Volume 81.3 fL (80.0-94.0); Mean Platelet Volume 10.1 fL (7.4-10.4); Platelet Count 211 10^3/uL (130-400); Red Blood Cell Count 3.04 10^6/uL (4.70-6.10); Red Cell Dist. Width 14.7 % (11.5-14.5); White Blood Cell Count 7.3 10^3/uL (4.8-10.8)
--- NOTE | 2025-01-04 09:27 | W.PN.HOSP.TC ---
Today's Communication/Plan
-
Resume Eliquis tomorrow morning
Discharge Thursday
Assessment / Plan
Assessment / Plan
Mr. Ana Dubois is a 89 yo man with hx essential HTN, depression, recent fall where struck face presented to ER 12/30 diagnosed with mildly displaced nasal bone fractures presents to the ER with epistaxis. He was treated for nose bleed with a
Rapid Rhino. During PT evaluation patient became ill appearing with significant amount of vomiting coffee ground emesis in setting of swallowed blood. He is also found to have new afib with RVR.
Severe Epistaxis
Nasal bone fractures
Coffee Ground Emesis
-S/p rapid rhino earlier in ER visit but patient likely swallowed a lot of blood then had coffee ground emesis
-Appreciate ENT input, okay to resume anticoagulation 01/05
-ENT rec augmentin with nasal packing x 3 days; packing came out 01/05 early AM
-Hold TAPPING MACHINE OPERATOR AUTOMATIC aspirin, Meloxicam. Per daughter, aspirin is for prophylaxis (no hx [place] or CVA)
New diagnosis atrial fibrillation with RVR
-Echo reviewed, TSH normal
-Appreciate cardiology input, recommend Toprol XL 25 mg daily
-ENT says okay for anticoagulation on 01/05
Acute blood loss anemia
-From epistaxis
-Hemoglobin 8.5 today, was 8.4, was 11.7 upon admission
-Trend, transfuse prn
Dementia
-per daughter, slightly more confused in setting of ER visit, bleed
-monitor
-PT ordered
Balanitis - per daughter patient is on treatment with Levaquin and ketonconazole
-will hold Levaquin while giving Augmentin
BPH -TAPPING MACHINE OPERATOR AUTOMATIC Flomax
Depression - TAPPING MACHINE OPERATOR AUTOMATIC Zoloft, Clonazepam
DVT prophylaxis�SCDs
DNR - this was discussed with patient's daughter over the phone
Updated daughter on phone 01/04
Total time spent to see the patient on the floor, examine the patient, review data and lab results, discuss treatment plan with patient, nursing staff around 45 minutes.
Physical Exam
General: No acute distress
HEENT: Normocephalic, periorbital ecchymosis noted
Nasal ecchymosis noted
No active bleeding
Respiratory: Clear to Auscultation bilaterally
Cardiac: Normal S1/S2, Regular Rate and Rhythm
GI: Soft, Nontender, Nondistended, Normal Bowel Sounds
Extremities: No Clubbing, Cyanosis, or Edema
Neuro: Pleasantly confused
Anticipated Discharge: 24 - 48 hours
Subjective/Interval History
-
Date of Service: January 04, 2025
No recurrence of epistaxis. No fever, no vomiting.
Objective Data
-
Labs:
Laboratory Results
01/04/25
07:56
WBC 7.3
Hgb 8.5 L
Hct 24.7 L
Plt Count 211
Vital Signs:
Vital Signs
Temp Pulse Resp BP Pulse Ox
98.3 F 85 18 122/71 95
01/04/25 07:30 01/04/25 07:30 01/04/25 07:30 01/04/25 07:30 01/04/25 07:30
I&O
01/03/25 01/04/25 01/05/25
06:59 06:59 06:59
Intake Total 930 / 930 1140 / 1140
Balance 930 / 930 1140 / 1140
--- NOTE | 2025-01-04 14:22 | CM ---
Plan is for patient to go to [facility], needs Auth, cost of Eliquis is $161 per month.
[facility]
Dr Schroeder
[2025-01-04 14:43] VITALS: BP 107/65; PULSE 82; O2SAT 94
[2025-01-04 15:16] VITALS: BP 107/65; PULSE 84; O2SAT 94
--- NOTE | 2025-01-04 15:17 | W.PN.CARDCBS ---
Addendum entered and electronically signed by Remi High MD 01/04/25 16:29:
I saw and examined the patient.
The Frit Coater's note was reviewed and I agree with the note.
Comment: Briefly, 89-year-old man past medical history of hypertension who presented with facial trauma after a fall and was identified as having new atrial fibrillation
Patient converted back to sinus rhythm after admission
Transthoracic echocardiogram here with normal systolic function and no high-grade valve disease
We have recommended addition of Eliquis to reduce the risk of cardioembolic stroke and the family is agreeable, per ENT okay to begin tomorrow morning
We will sign off, please recall as needed
Original Note:
Today's Communication / Plan
-
Start Eliquis 5 mg BID in AM, daughter agreeable to cost
Impression / Plan
-
PCP: Dr. Víctor Garvin
Cardiology: Dr. High
Impression:
Admitted with epistaxis and hematemesis 01/01/2025
Recent ER visit for fall and facial trauma 12/30/2024
Epistaxis due to trauma resulting in nasal fracture and mucosal break
Hematemesis, likely due to epistaxis
Newly diagnosed A-fib of unclear duration
HTN
Dementia
Echo 2018: EF 75%, stage I diastolic dysfunction, mildly dilated LA, noncoronary cusp mildly to moderately calcified with mildly restricted movement, mild TR, PAP 30 to 35 mmHg
Echo 01/02/2025: EF 60 to 65%, normal diastolic function, aortic root mildly dilated at 3.8 cm at the sinus of Valsalva, normal ascending aorta, compared to echo 02/2018 there is no change
Plan:
-Nasal packing has not been replaced and there has been no recurrent epistaxis.Per ENT we can start OAC on .
-Ordered Eliquis 5 mg BID (age 89, Cre 1.1, wt 84 kg) to start 01/05/2025 AM. I e-scribed to patient's pharmacy as well
-BP and HR stable on my review following reduction of Toprol XL to 25 mg daily on 01/03/2025. Toprol-XL is a new medication this admission
-Patient is not a candidate for rhythm control until we know he can take 4 weeks of uninterrupted OAC, reviewed this with his daughter as well on 01/02/2025. Will continue to focus on rate control as noted above.
-TSH was normal at 0.55
-Eventual evaluation for BOSSMAN
-Talked with patient's daughter, Thuy, by phone for 9 minutes 10 seconds on 01/04/2025 and she is agreeable to the initiation of Eliquis and to the monthly cost of about $160 as figured out by CM.
HPI: Patient came to ER yesterday with epistaxis and was admitted after experiencing hematemesis and cardiology is now consulted due to incidental finding of A-fib as well. Patient lives in independent living at [facility] and had a trip and fall on
12/30/2024 resulting in an ER visit where they identified a laceration to the bridge of his nose and CT of the head showed septal hematoma, but no evidence of intracranial injury the patient was returned back to his independent living apartment at
[facility]. Patient return to ER on 01/01/2025 with epistaxis and was reported to have an episode of hematemesis. Reexamination showed evidence of nasal fracture with evidence of mucosal break. Inflatable nasal packing was placed to the left nostril
and patient was dispositioned back to [facility], but the facility refused to accept him and stated that he needed a higher level of care. Patient was evaluated by PT and an attempt to place in a rehab and he started to feel unwell and then had large
amount of coffee-ground emesis. Patient was placed on monitoring specialist and noted to be tachycardic and hypotensive and this was apparently the first evidence of A-fib, but there are no ECGs from 12/30/2024 or earlier in the visit on 01/01/2025 to
confirm this. Patient was admitted and cardiology consulted. We had last seen the patient on 03/31/2024 for preop exam prior to a RADHA and at that time he was NSR. No h/o CAD. Patient denies palpitations.
Progress Note - Compliance Director
Subjective
Date of Service: January 04, 2025
Feels well, not lightheaded
Objective
Labs:
01/04/25 07:56
01/02/25 11:11
Labs
Hgb 8.5 g/dL (13.0-18.0) L 01/04/25 07:56
Hct 24.7 % (39.0-52.0) L 01/04/25 07:56
Plt Count 211 10^3/uL (130-400) 01/04/25 07:56
Sodium 141 mmol/L (135-145) 01/02/25 11:11
Potassium 3.9 mmol/L (3.5-5.1) 01/02/25 11:11
BUN 33 mg/dl (9-20) H 01/02/25 11:11
Creatinine 1.1 mg/dL (0.7-1.3) 01/02/25 11:11
Glucose 152 mg/dl (70-99) H 01/02/25 11:11
Vital Signs and I&O:
Vital Signs
Temp Pulse Resp BP Pulse Ox
98.3 F 85 18 122/71 96
01/04/25 07:30 01/04/25 07:30 01/04/25 07:30 01/04/25 07:30 01/04/25 08:00
Vital Signs
Temp Pulse Resp BP Pulse Ox
98.3 F 85 18 122/71 96
01/04/25 07:30 01/04/25 07:30 01/04/25 07:30 01/04/25 07:30 01/04/25 08:00
Intake & Output
01/02/25 01/03/25 01/04/25 01/05/25
06:59 06:59 06:59 06:59
Intake Total 327 / 327 930 / 930 1140 / 1140
Output Total 700 / 700
Balance -373 / -373 930 / 930 1140 / 1140
Physical Exam
Physical Exam
GEN: NAD
HEENT: Facial ecchymoses yellowing out
LUNGS: RA.
CV: SR with PACs on tele
EXT: No edema B/L
NEURO: Gross non-focal
SKIN: No rash
[2025-01-04 15:48] VITALS: BP 115/76
[2025-01-04] MEDS: FLOMAX 0.8 MG PO (22:06)
[2025-01-04] MEDS: KLONOPIN 0.5 MG PO (22:06)
[2025-01-04 23:00] VITALS: BP 135/73
[2025-01-05 07:55] VITALS: BP 131/69
[2025-01-05 07:59] LABS: Hematocrit 26.1 % (39.0-52.0); Hemoglobin 8.9 g/dL (13.0-18.0); Mean Corp Hgb Conc. 34.1 g/dL (33.0-37.0); Mean Corpuscular Hgb 27.5 pg (27.0-31.0); Mean Corpuscular Volume 80.6 fL (80.0-94.0); Mean Platelet Volume 9.6 fL (7.4-10.4); Platelet Count 250 10^3/uL (130-400); Red Blood Cell Count 3.24 10^6/uL (4.70-6.10); Red Cell Dist. Width 14.5 % (11.5-14.5); White Blood Cell Count 7.5 10^3/uL (4.8-10.8)
[2025-01-05] MEDS: MYCOSTATIN CREAM 1 APPLIC TOPICAL ×2 (08:42→19:45)
[2025-01-05] MEDS: SENOKOT 17.2 MG PO ×2 (08:44→19:46)
[2025-01-05] MEDS: VISBIOME 1 CAP PO ×2 (08:44→19:45)
[2025-01-05] MEDS: AUGMENTIN 875 MG/125 MG 1 TABLET PO ×2 (08:44→19:46)
[2025-01-05] MEDS: PROTONIX 40 MG PO ×2 (08:45→19:46)
[2025-01-05] MEDS: TOPROL XL 25 MG PO (08:45)
[2025-01-05] MEDS: ZOLOFT 100 MG PO (08:45)
[2025-01-05] MEDS: ELIQUIS 5 MG PO ×2 (08:45→19:45)
[2025-01-05] MEDS: NIZORAL 2% CREAM 1 APPLIC TOPICAL ×2 (08:46→19:45)
--- NOTE | 2025-01-05 08:46 | W.PN.HOSP.TC ---
Today's Communication/Plan
-
Resume Eliquis today
Monitor for epistaxis
Discharge tomorrow
Assessment / Plan
Assessment / Plan
Mr. Ana Dubois is a 89 yo man with hx essential HTN, depression, recent fall where struck face presented to ER 12/30 diagnosed with mildly displaced nasal bone fractures presents to the ER with epistaxis. He was treated for nose bleed with a
Rapid Rhino. During PT evaluation patient became ill appearing with significant amount of vomiting coffee ground emesis in setting of swallowed blood. He is also found to have new afib with RVR.
Severe Epistaxis
Nasal bone fractures
Coffee Ground Emesis
-S/p rapid rhino earlier in ER visit but patient likely swallowed a lot of blood then had coffee ground emesis
-Appreciate ENT input, okay to resume anticoagulation 01/05
-ENT rec augmentin with nasal packing x 3 days; packing came out 01/05 early AM
-Hold DIE MAKER TRIM aspirin, Meloxicam. Per daughter, aspirin is for prophylaxis (no hx [place] or CVA)
New diagnosis atrial fibrillation with RVR
-Echo reviewed, TSH normal
-Appreciate cardiology input, recommend Toprol XL 25 mg daily
-Eliquis resumed 01/05
Acute blood loss anemia
-From epistaxis
-Hemoglobin 8.9 today, was 8.5, was 8.4, was 11.7 upon admission
-Trend, transfuse prn
Dementia
-per daughter, slightly more confused in setting of ER visit, bleed
-monitor
-PT ordered
Balanitis - per daughter patient is on treatment with Levaquin and ketonconazole
-will hold Levaquin while giving Augmentin
BPH -DIE MAKER TRIM Flomax
Depression - DIE MAKER TRIM Zoloft, Clonazepam
DVT prophylaxis�SCDs
DNR - this was discussed with patient's daughter over the phone
Updated daughter on phone 01/04
Total time spent to see the patient on the floor, examine the patient, review data and lab results, discuss treatment plan with patient, nursing staff around 40 minutes.
Physical Exam
General: No acute distress
HEENT: Normocephalic, periorbital ecchymosis noted
Nasal ecchymosis noted
No active bleeding
Respiratory: Clear to Auscultation bilaterally
Cardiac: Normal S1/S2, Regular Rate and Rhythm
GI: Soft, Nontender, Nondistended, Normal Bowel Sounds
Extremities: No Clubbing, Cyanosis, or Edema
Neuro: Pleasantly confused
Anticipated Discharge: Within 24 hours
Subjective/Interval History
-
Date of Service: January 05, 2025
No recurrence of epistaxis. No shortness of breath, no fever, no vomiting.
Objective Data
-
Labs:
Laboratory Results
01/05/25
07:02
WBC 7.5
Hgb 8.9 L
Hct 26.1 L
Plt Count 250
Vital Signs:
Vital Signs
Temp Pulse Resp BP Pulse Ox
97.4 F 94 20 131/69 95
01/05/25 07:55 01/05/25 07:55 01/05/25 07:55 01/05/25 07:55 01/05/25 07:55
I&O
01/04/25 01/05/25 01/06/25
06:59 06:59 06:59
Intake Total 1140 / 1140 980 / 980
Output Total 400 / 400
Balance 1140 / 1140 580 / 580
[2025-01-05] MEDS: DITROPAN 5 MG PO (08:58)
--- NOTE | 2025-01-05 09:49 | W.PN.UPDATE ---
Update Note
Progress Note Update
Packing fell out
No additional epistaxis
Hgb- 8.9
Facial eccymosis
Nasal mucosa dry, no active bleeding
A/P Epistaxis after nasal fracture
Stable
Would moisturize nasal mucosa with saline gel qhs and prn
Ok to restart anticoagulation
Contact again if needed
--- NOTE | 2025-01-05 14:34 | CM ---
Chart reviewed and patient has a bed at [facility] on Thursday01/06/25 if medically cleared, patient will need Auth.
[facility]
Dr Schroeder
Plan; Skilled placement at [facility]
[2025-01-05 15:55] VITALS: BP 110/60
[2025-01-05] MEDS: MIRALAX 17 GRAMS PO (17:28)
[2025-01-05] MEDS: FLOMAX 0.8 MG PO (21:35)
[2025-01-05] MEDS: KLONOPIN 0.5 MG PO (21:35)
[2025-01-05 23:03] VITALS: BP 145/83
[2025-01-06 06:00] VITALS: BMI 28.6
[2025-01-06 07:25] VITALS: BP 127/74
--- NOTE | 2025-01-06 07:37 | W.PN.HOSP.TC ---
Today's Communication/Plan
-
Discharge to short-term rehab today
Assessment / Plan
Assessment / Plan
Mr. Ana Dubois is a 89 yo man with hx essential HTN, depression, recent fall where struck face presented to ER 12/30 diagnosed with mildly displaced nasal bone fractures presents to the ER with epistaxis. He was treated for nose bleed with a
Rapid Rhino. During PT evaluation patient became ill appearing with significant amount of vomiting coffee ground emesis in setting of swallowed blood. He is also found to have new afib with RVR.
Severe Epistaxis
Nasal bone fractures
Coffee Ground Emesis
-S/p rapid rhino earlier in ER visit but patient likely swallowed a lot of blood then had coffee ground emesis
-Appreciate ENT input, okay to resume anticoagulation 01/05
-ENT rec augmentin with nasal packing x 3 days; packing came out 01/05 early AM
-Hold CHEMIST WATER PURIFICATION aspirin, Meloxicam. Per daughter, aspirin is for prophylaxis (no hx [place] or CVA)
-No recurrence of epistaxis with resuming Eliquis, medically stable for discharge to short-term rehab today
New diagnosis atrial fibrillation with RVR
-Echo reviewed, TSH normal
-Appreciate cardiology input, recommend Toprol XL 25 mg daily
-Eliquis resumed 01/05
Acute blood loss anemia
-From epistaxis
-Hemoglobin 8.9 today, was 8.5, was 8.4, was 11.7 upon admission
-Trend, transfuse prn
Dementia
-per daughter, slightly more confused in setting of ER visit, bleed
-monitor
-PT ordered
Balanitis - per daughter patient is on treatment with Levaquin and ketonconazole
-will hold Levaquin while giving Augmentin
BPH -CHEMIST WATER PURIFICATION Flomax
Depression - CHEMIST WATER PURIFICATION Zoloft, Clonazepam
DVT prophylaxis�SCDs
DNR - this was discussed with patient's daughter over the phone
Updated daughter on phone 01/04
Physical Exam
General: No acute distress
HEENT: Normocephalic, periorbital ecchymosis noted
Nasal ecchymosis noted
No active bleeding
Respiratory: Clear to Auscultation bilaterally
Cardiac: Normal S1/S2, Regular Rate and Rhythm
GI: Soft, Nontender, Nondistended, Normal Bowel Sounds
Extremities: No Clubbing, Cyanosis, or Edema
Neuro: Pleasantly confused
Anticipated Discharge: Today
Subjective/Interval History
-
Date of Service: January 06, 2025
No recurrence of epistaxis. No chest pain, no shortness of breath. No fever, no vomiting.
Objective Data
-
Labs:
Laboratory Results
01/06/25
06:00
WBC Pending
Hgb Pending
Hct Pending
Plt Count Pending
Vital Signs:
Vital Signs
Temp Pulse Resp BP Pulse Ox
99.2 F 98 18 145/83 97
01/05/25 23:03 01/05/25 23:03 01/05/25 23:03 01/05/25 23:03 01/05/25 23:03
I&O
01/05/25 01/06/25 01/07/25
06:59 06:59 06:59
Intake Total 980 / 980 1280 / 1280
Output Total 400 / 400
Balance 580 / 580 1280 / 1280
[2025-01-06 08:47] LABS: Hematocrit 28.4 % (39.0-52.0); Hemoglobin 9.7 g/dL (13.0-18.0); Mean Corp Hgb Conc. 34.2 g/dL (33.0-37.0); Mean Corpuscular Hgb 27.4 pg (27.0-31.0); Mean Corpuscular Volume 80.2 fL (80.0-94.0); Mean Platelet Volume 9.7 fL (7.4-10.4); Platelet Count 306 10^3/uL (130-400); Red Blood Cell Count 3.54 10^6/uL (4.70-6.10); Red Cell Dist. Width 14.3 % (11.5-14.5); White Blood Cell Count 10.2 10^3/uL (4.8-10.8)
[2025-01-06 09:55] VITALS: BP 96/63; PULSE 89; O2SAT 95
--- NOTE | 2025-01-06 09:55 | CM ---
Addendum entered by Elizabet Hand 01/06/25 14:41:
ambulance metal pickling equipment operator time communicated via phone to daughter, Thuy
Addendum entered by Elizabet Yazan 01/06/25 14:01:
ambulance pickup confirmed for 4:30pm today; facility notified
Add[facility] 01/06/25 13:48:
SNF authorization approved; Authorization # [id number]
Ambulance Authorization # [id number]
Carpet Mechanic approved for 5 days starting today; next review is 01/10; call # for concurrent review
[facility] notified
Addendum entered by Elizabet Yazan 01/06/25 11:48:
IMM benefit explained to daughter, via phone @ [phone]
Addendum entered by [facility]et [facility] 01/06/25 11:47:
CM spoke with patient's daughter, Thuy, via phone; discharge plan discussed
Addendum entered by Elizabet Yazan 01/06/25 11:15:
Authorization for SNF and Ambulance submitted; approval pending review
[facility]
Report # [id number]

Original Note:
Plan: Discharge to [facility] today pending Auth approval
[2025-01-06 09:57] VITALS: BP 96/62; O2SAT 97
[2025-01-06] MEDS: AYR SALINE NASAL GEL 1 APPLIC NASAL (10:21)
--- NOTE | 2025-01-06 10:21 | W.DCSUMMARY ---
Addendum entered and electronically signed by João Prado MD 01/06/25 16:43:
Of note, patient was on levofloxacin and ketoconazole cream for balanitis prior to admission.
He can continue these medications for 7 more days upon discharge.
Original Note:
Discharge Summary
Discharge Data
Date of Admission: 01/01/25
Date of Discharge: 01/06/25
-
Pending Results: No
Hospital Course
Discharge diagnosis:
Severe epistaxis
Nasal bone fractures
Coffee ground emesis from swallowed blood
New diagnosis of atrial fibrillation with rapid ventricular response
Acute blood loss anemia
Dementia
Balanitis
Benign prostatic hypertrophy
Depression
Consults: ENT, cardiology
Echo:
Normal left ventricular size, wall thickness and systolic function. No regional
wall motion abnormalities are seen. LV ejection fraction is 60-65% by visual
assessment. Normal diastolic function.
The aortic root is mildly dilated-3.8 cm at sinus of Valsalva. Normal ascending
aorta.
Hospital course:
89-year-old male with a past medical history of dementia, BPH, and depression who had a recent fall and seen in the ER on 12/30/2024, who was admitted for epistaxis. He was diagnosed with mildly displaced nasal bone fractures during his fall.
Patient was seen in conjunction of ENT, and had a rapid Rhino inserted on his left nostril. He swallowed some blood, and had coffee-ground emesis. ENT recommends treatment with Augmentin for 3 days. Patient's nasal packing fell out on the morning
of 01/05/2025.
Patient did have acute blood loss anemia. His hemoglobin was 11.7 upon admission, dropped down to 8.4, and improved to 9.7 on the day of discharge.
Patient's hospital course was complicated by new onset rapid atrial fibrillation with rapid ventricular response. TSH was normal. Patient was seen in conjunction with cardiology, and started on Toprol XL 25 mg daily. He was cleared to start
Eliquis on 01/06/2025. He did not have any recurrence of epistaxis. His heart rate was controlled. Patient is medically stable for discharge. He needs to follow-up with cardiology in the office in 2-3 weeks, and his primary care doctor 1 week
after he leaves rehab.
Disposition: Short-term rehab
Discharge planning: Required 37 minutes
Discharge Plan
-
Patient Disposition: Jail/SNF
Discharge Diagnosis/Procedures: Epistaxis, nasal bone fractures, atrial fibrillation with rapid ventricular response, acute blood loss anemia, dementia
Condition: Fair
Diet: Low Fat and Low Cholesterol
Activity: As tolerated
Activity Restrictions/Additional Instructions:
Follow-up with your primary care doctor 1 week after you leave rehab, and cardiology as directed.
Referrals:
Remi High MD [Active] - 01/25/25 2:40 pm (You have an appointment to see Dr. High's physician child development assistant, Eva, at the [place] office on 01/25/2025 at 2:40 PM. Please call to [facility] [phone] if you need to reschedule)
UNKNOWN - PT DOES,NOT KNOW [Family Provider] -
Prescriptions:
New
Eliquis 5 mg tablet
5 mg PO BID Qty: 60 11RF
[place] Saline Gel
1 applic intranasal BID Qty: 14.1 0RF
polyethylene glycol 3350 17 gram Powder In Packet
17 g PO DAILY Qty: 0 0RF
metoprolol succinate 25 mg Tablet Extended Release 24 Hr
25 mg PO DAILY Qty: 30 0RF
Continued
sertraline 100 mg Tablet
100 mg PO DAILY
ascorbic acid (vitamin C) [Vitamin C] 500 mg Tablet
500 mg PO DAILY
tamsulosin 0.4 mg Capsule
0.8 mg PO HS
oxybutynin chloride 5 mg Tablet Extended Release 24hr
5 mg PO DAILY
sennosides [senna] 8.6 mg Tablet
17.2 mg PO BID
acetaminophen 325 mg Tablet
650 mg PO Q6H PRN (Reason: fever/mild pain)
therapeutic multivitamin Tablet
1 tab PO DAILY
ferrous sulfate 325 mg (65 mg iron) Tablet
325 mg PO Q48H
nystatin 100,000 unit/gram Cream
1 applic TOPICAL BID
Rx Instructions:
apply to sacrum
clotrimazole-betamethasone 1-0.05 % Cream
1 applic TOPICAL DAILY
Rx Instructions:
apply to tip of penis, hold from 12/22/24 to 01/05/25
ketoconazole 2 % Cream
1 applic TOPICAL BID
Rx Instructions:
apply to penis
vitamin E (dl, acetate) 45 mg (100 unit) Capsule
45 mg PO DAILY
calcium carbonate-vitamin D3 [Oyster Shell + D3] 250 mg-3.125 mcg (125 unit) Tablet
1 tab PO DAILY
Visbiome 112.5 billion cell Capsule
1 cap PO BID
cholecalciferol (vitamin D3) 125 mcg (5,000 unit) Tablet
125 mcg PO DAILY
clonazepam 0.5 mg Tablet
0.5 mg PO HS Qty: 4 0RF
levofloxacin 250 mg Tablet
250 mg PO DAILY Qty: 7 0RF
Discontinued
meloxicam 15 mg Tablet
15 mg PO DAILY
aspirin 81 mg Tablet,Chewable
81 mg PO BID
Discharge Orders:
Discharge Patient (As Directed); Ordered 01/06/25
Ordered By: João Prado
Discharge Date and Time
Print Language: YI
[2025-01-06] MEDS: TOPROL XL 25 MG PO (10:22)
[2025-01-06] MEDS: SENOKOT 17.2 MG PO (10:22)
[2025-01-06] MEDS: ELIQUIS 5 MG PO (10:22)
[2025-01-06] MEDS: VISBIOME 1 CAP PO (10:22)
[2025-01-06] MEDS: PROTONIX 40 MG PO (10:22)
[2025-01-06] MEDS: AUGMENTIN 875 MG/125 MG 1 TABLET PO (10:22)
[2025-01-06] MEDS: DITROPAN 5 MG PO (10:22)
[2025-01-06] MEDS: ZOLOFT 100 MG PO (10:22)
[2025-01-06 15:00] VITALS: BP 130/64
[2025-01-06] MEDS: MYCOSTATIN CREAM 1 APPLIC TOPICAL (15:21)
[2025-01-06] MEDS: NIZORAL 2% CREAM 1 APPLIC TOPICAL (15:21)
--- NOTE | 2025-01-06 16:10 | PTCARENOTE ---
report called in to Zaynab at [facility]. 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
== END 2025-01-06 17:25 | DRG 155 ==
LOC: 4 WEST ACU 13:55
PROVIDERS: Emergency Medicine; ADMITTING PHYSICIAN Student in an Organized Health Care Education/Training Program; ATTENDING PHYSICIAN Family Medicine; CONSULT PHYSICIAN Otolaryngology Facial Plastic Surgery; EMERGENCY PHYSICIAN Emergency Medicine; OTHER PHYSICIAN Internal Medicine Cardiovascular Disease
PROC: 2Y41X5Z Packing of Nasal Region using Packing Material (ICD-10-PCS; 2025-01-01)
PROC: 093K7ZZ Control Bleeding in Nasal Mucosa and Soft Tissue, Via Natural or Artificial Opening (ICD-10-PCS; 2025-01-01)
DX: S02.2XXB Fracture of nasal bones, initial encounter for open fracture (principal); D62 Acute posthemorrhagic anemia; F03.A3 Unspecified dementia, mild, with mood disturbance; I50.32 Chronic diastolic (congestive) heart failure; Z66 Do not resuscitate; F32.A Depression, unspecified; I48.91 Unspecified atrial fibrillation; N48.1 Balanitis; I11.0 Hypertensive heart disease with heart failure; N40.0 Benign prostatic hyperplasia without lower urinary tract symptoms; Z79.82 Long term (current) use of aspirin; Z79.01 Long term (current) use of anticoagulants; Z87.891 Personal history of nicotine dependence; Z79.899 Other long term (current) drug therapy; Z96.642 Presence of left artificial hip joint; W18.30XA Fall on same level, unspecified, initial encounter
CPT/HCPCS: 30901; 71045; 80048; 80053; 83605; 83735; 84443; 85018; 85025; 85027; 86850; 86900; 86901; 87040; 87070; 93005; 93306; 96360; 97166; 97530; 97535; 99285

== ENCOUNTER → 2025-01-09 11:52 | Outpatient (REF) | payer OTHER, SELFPAY ==
[2025-01-09 12:47] LABS: % Basophils 0.5 % (0-2); % Eosinophils 1.6 % (0-6); % Immature Granulocytes 2.3 % (0-0.5); % Monocytes 9.4 % (1.7-9.3); % Neutrophils 69.2 % (42.2-75.2); Absolute Eosinophils 0.1 10^3/uL (0-0.7); Absolute Immature Granulocytes 0.2 10^3/uL (0-0.05); Absolute Lymphocytes 1.5 10^3/uL (1.2-3.4); Absolute Monocytes 0.8 10^3/uL (0.1-0.6); Absolute Neutrophils 5.9 10^3/uL (1.4-6.5); Hematocrit 25.6 % (39.0-52.0); Hemoglobin 8.6 g/dL (13.0-18.0); Mean Corp Hgb Conc. 33.6 g/dL (33.0-37.0); Mean Corpuscular Hgb 27.3 pg (27.0-31.0); Mean Corpuscular Volume 81.3 fL (80.0-94.0); Mean Platelet Volume 10.1 fL (7.4-10.4); Nucleated Red Blood Cells % 0 % (-); Platelet Count 349 10^3/uL (130-400); Red Blood Cell Count 3.15 10^6/uL (4.70-6.10); Red Cell Dist. Width 14.5 % (11.5-14.5); White Blood Cell Count 8.5 10^3/uL (4.8-10.8)
[2025-01-09 13:06] LABS: ALT (SGPT) < 10 U/L (0-50); AST (SGOT) 13 U/L (17-59); Alkaline Phosphatase 59 U/L (38-126); Blood Urea Nitrogen 23 mg/dl (9-20); Calcium 8.8 mg/dl (8.4-10.2); Carbon Dioxide 25 mmol/L (22-30); Chloride 109 mmol/L (98-107); Glucose 100 mg/dl (70-99); Magnesium 2.2 mg/dl (1.6-2.3); Potassium 4.1 mmol/L (3.5-5.1); Sodium 138 mmol/L (135-145); Total Bilirubin 0.5 mg/dl (0.2-1.3); Total Protein 5.7 g/dl (6.3-8.2); eGFR > 60.00
== END ==
LOC: OLABWHC 11:52
PROVIDERS: ATTENDING PHYSICIAN Family Medicine
DX: D64.9 Anemia, unspecified (principal)
CPT/HCPCS: 36415; 80053; 83735; 85025

== ENCOUNTER → 2025-01-16 13:16 | Outpatient (REF) | payer OTHER, SELFPAY ==
[2025-01-16 13:29] LABS: Hematocrit 26.1 % (39.0-52.0); Hemoglobin 8.8 g/dL (13.0-18.0); Mean Corp Hgb Conc. 33.7 g/dL (33.0-37.0); Mean Corpuscular Hgb 27.3 pg (27.0-31.0); Mean Corpuscular Volume 81.1 fL (80.0-94.0); Mean Platelet Volume 9.9 fL (7.4-10.4); Platelet Count 328 10^3/uL (130-400); Red Blood Cell Count 3.22 10^6/uL (4.70-6.10); Red Cell Dist. Width 14.1 % (11.5-14.5); White Blood Cell Count 6.9 10^3/uL (4.8-10.8)
== END ==
LOC: OLABWHC 13:16
PROVIDERS: ATTENDING PHYSICIAN Family Medicine
DX: D62 Acute posthemorrhagic anemia (principal); I48.91 Unspecified atrial fibrillation
CPT/HCPCS: 36415; 85027

== ENCOUNTER 2025-09-30 21:22 | Emergency (ER) | payer OTHER, SELFPAY ==
[2025-09-30 21:26] VITALS: BP 134/98
--- NOTE | 2025-09-30 22:27 | ED.MUSCINJ ---
HPI-Injury
<Qamar Curry DO - Last Filed: 09/30/25 23:18>
General
Chief Complaint: Fall
Time Seen by Provider: 09/30/25 21:27
Nursing documentation reviewed up to this point in time: agreed with
History of Present Illness-Injury
Initial Injury comments:
89-year-old male presents to the ER via EMS for evaluation after he fell forward out of his wheelchair while try to fish bait picker a piece of the puzzle. He reports mild head discomfort. He also reports that he landed on his left knee. He denies loss of
consciousness. He denies any significant injury. He reports feeling otherwise well and denies any recent illness. Fall was witnessed. He is on long-term Eliquis. He also has a history of congestive heart failure, hypertension and tachycardia.
Past History
<Qamar Curry, DO - Last Filed: 09/30/25 23:18>
Past History
ED Past Medical History: HTN, Psychiatric (Depression) and Other (Pulmonary fibrosis)
ED Past Surgical History: Cholecystectomy and Orthopedic (Left hip replacement)
Social History
Tobacco: Non-smoker
Alcohol: None
Drug: None
Personal:
Living: assisted living
Employment: Retired
Review of Systems
<Qamar Curry, DO - Last Filed: 09/30/25 23:18>
Review of Systems
Allergies reviewed?: Yes
Phy Exam
<Qamar Curry, DO - Last Filed: 09/30/25 23:18>
Physical Exam
Physical Exam:
Patient is awake, alert, appears in no acute distress, 6 cm abrasion present over right forehead, neck is nontender on palpation, patient spontaneously moving head in all directions without discomfort, PERRL, EOMI mucous membranes moist, conjunctiva
pink, heart regular rate and rhythm without murmurs or ectopy, lungs are clear to auscultation without wheezes rales or rhonchi, no JVD, abdomen is soft and nontender on palpation, extremities without edema, skin tear present over left knee with no
active bleeding,GCS is 15, no dysdiadochokinesia, no ataxia, no pronator drift
Injury Course
<Qamar Curry DO - Last Filed: 09/30/25 23:18>
Orders/Labs/Results
Orders:
Orders
09/30/25 21:36
CT Cervical Spine W/o Iv Contr Urgent
Comment:
Reason For Exam: trauma
CT Head W/o Iv Contrast Urgent
Comment:
Reason For Exam: trauma
<Mattie Garcia DO - Last Filed: 10/01/25 00:47>
Orders/Labs/Results
Orders:
Orders
09/30/25 21:36
CT Cervical Spine W/o Iv Contr Urgent
Comment:
Reason For Exam: trauma
CT Head W/o Iv Contrast Urgent
Comment:
Reason For Exam: trauma
<Qamar Curry DO - Last Filed: 09/30/25 23:18>
MDM/Problems Addressed
Differential Diagnosis Includes:
Differential diagnosis to consider but not limited to intracranial hemorrhage, skull fracture, occult cervical spine injury along with other etiologies considered
Chronic conditions affecting care:
Advanced age, chronic anticoagulant use, CHF, hypertension
<Qamar Curry DO - Last Filed: 09/30/25 23:18>
*Radiology
Radiology exam reviewed: preliminary read by ED provider (I independently viewed and interpreted CT of the head showing diffuse atrophy, no gross hemorrhage, no midline shift)
*Pulse Oximetry
SaO2: 100
Oxygen Mode of Delivery: Room air
Patient hypoxic: yes
<Mattie R. Garcia, DO - Last Filed: 10/01/25 00:47>
*Radiology
Radiology exam reviewed: radiology read reviewed (CT of the head/cervical spine showed no acute traumatic findings.)
*Critical Care Note
Total Time (30-74mins, 75-104mins- exclusive of procedures): Not Applicable
<Qamar Curry, DO - Last Filed: 09/30/25 23:18>
Update Note
Update Note:
CT head and cervical spine are ordered, awaiting results for disposition.
Full pt care transferred to Dr Garcia for dispo pending CT results
<Mattie Garcia, DO - Last Filed: 10/01/25 00:47>
Update Note
Update Note:
CT head and cervical spine are ordered, awaiting results for disposition.
Full pt care transferred to Dr Garcia for dispo pending CT results
00:45
CT of the head/cervical spine showed no acute traumatic findings.
Patient remains bright and alert, pleasant, offers no complaints.
Superficial abrasion right forehead will be treated with topical bacitracin.
Will discharge back to residential for continued care.
ED Attending Note
<Qamar Curry, DO - Last Filed: 09/30/25 23:18>
-
Portions of this chart may have been created with voice recognition software.� Occasional wrong word or��sound alike� substitutions may have occurred due to the inherent limitations of voice recognition software.
Discharge Plan
Departure
Patient Disposition: Retirement/SNF
Date of Disposition: 10/01/25
Time of Disposition: 00:46
Patient with high blood pressure during this ER visit?: No
Condition: Good
Discharge Problem:
Head injury, Abrasion of knee, left, Anticoagulant long-term use
Instructions: Head Injury in Adults (DC), Skin Abrasions (DC)
Prescriptions:
No Action
sertraline 100 mg Tablet
100 mg PO DAILY
ascorbic acid (vitamin C) [Vitamin C] 500 mg Tablet
500 mg PO DAILY
tamsulosin 0.4 mg Capsule
0.8 mg PO HS
oxybutynin chloride 5 mg Tablet Extended Release 24hr
5 mg PO DAILY
sennosides [senna] 8.6 mg Tablet
17.2 mg PO BID
acetaminophen 325 mg Tablet
650 mg PO Q6H PRN (Reason: fever/mild pain)
therapeutic multivitamin Tablet
1 tab PO DAILY
ferrous sulfate 325 mg (65 mg iron) Tablet
325 mg PO Q48H
nystatin 100,000 unit/gram Cream
1 applic TOPICAL BID
Rx Instructions:
apply to sacrum
clotrimazole-betamethasone 1-0.05 % Cream
1 applic TOPICAL DAILY
Rx Instructions:
apply to tip of penis, hold from 12/22/24 to 01/05/25
ketoconazole 2 % Cream
1 applic TOPICAL BID
Rx Instructions:
apply to penis
vitamin E (dl, acetate) 45 mg (100 unit) Capsule
45 mg PO DAILY
calcium carbonate-vitamin D3 [Oyster Shell + D3] 250 mg-3.125 mcg (125 unit) Tablet
1 tab PO DAILY
Visbiome 112.5 billion cell Capsule
1 cap PO BID
cholecalciferol (vitamin D3) 125 mcg (5,000 unit) Tablet
125 mcg PO DAILY
Eliquis 5 mg tablet
5 mg PO BID Qty: 60 11RF
[place] Saline Gel
1 applic intranasal BID Qty: 14.1 0RF
polyethylene glycol 3350 17 gram Powder In Packet
17 g PO DAILY Qty: 0 0RF
metoprolol succinate 25 mg Tablet Extended Release 24 Hr
25 mg PO DAILY Qty: 30 0RF
clonazepam 0.5 mg Tablet
0.5 mg PO HS Qty: 4 0RF
levofloxacin 250 mg Tablet
250 mg PO DAILY Qty: 7 0RF
Referrals:
Romaine Schroeder MD [Family Provider, Family Practice] - Call in 1-3 days for appt
Interventions
Interventions:
*General Assessment Last Done: 09/30/25 21:26
*Neglect/Abuse Screening Last Done: 09/30/25 21:26
*ED COVID-19 Vaccine History Last Done: 09/30/25 21:26
*ED Influenza Vaccine History Last Done: 09/30/25 21:26
[facility] Fall Risk Assessment Tool Last Done: 09/30/25 21:39
*Risk Screen - Suicide (C-SSRS) Last Done: 09/30/25 21:26
ED-Musculoskeletal Assessment Last Done: 09/30/25 21:40
ED- Neurological Assessment Last Done: 09/30/25 21:40
ED-Skin Assessment Last Done: 09/30/25 21:40
Discharge Date and Time
Print Language: ROMANIAN
[2025-10-01] MEDS: BACITRACIN OINTMENT 1 APPLIC TOPICAL (01:35)
== END 2025-10-01 03:33 ==
LOC: EMR 21:22
PROVIDERS: EMERGENCY PHYSICIAN Emergency Medicine; FAMILY PHYSICIAN Family Medicine
DX: S00.81XA Abrasion of other part of head, initial encounter (principal); S80.212A Abrasion, left knee, initial encounter; W05.0XXA Fall from non-moving wheelchair, initial encounter; Z79.01 Long term (current) use of anticoagulants; I11.0 Hypertensive heart disease with heart failure; I50.9 Heart failure, unspecified; Z96.642 Presence of left artificial hip joint; Z90.49 Acquired absence of other specified parts of digestive tract
CPT/HCPCS: 99284; 70450; 72125